=== PATIENT | male | born 1945 | race Caucasian/White ===

== ENCOUNTER 2017-01-28 05:27 | Inpatient (IN) | payer MEDICARE, OTHER ==
[2017-01-21 16:54] LABS: PROTIME (NOT ORD) 12.7 SEC (12.0-14.5)
[2017-01-21 16:55] LABS: ASCORBIC ACID (UR NOT ORDER) NEG (NEG); BILIRUBIN, URINE NEGATIVE (NEG); KETONE, URINE NEGATIVE (NEG); LEUKOCYTE ESTERASE(NOT OR NEG (NEG); WBC (NOT ORDERED) (RFLEX) 2 (0-5)
[2017-01-21 17:15] LABS: % IRON SAT 17 % (20-50); A/G RATIO 1.3 (0.7-1.9); ALBUMIN 4.2 G/DL (3.5-5.0); ALKALINE PHOSPHATASE 82 U/L (45-117); BUN (BLOOD UREA NITROGEN) 19 MG/DL (6-23); CALCIUM, SERUM 9.1 MG/DL (8.5-10.4); CHLORIDE, SERUM 107 MMOL/L (96-112); CO2 (CARBON DIOXIDE) 28 MMOL/L (24-34); CREATININE 1.72 MG/DL (0.70-1.30); GFR AFRICAN AMERICAN 46 ML/MIN (>=60); GFR NON AFRICAN AMERICAN 39 ML/MIN (>=60); GLOBULIN 3.2 G/DL (2.5-4.1); GLUCOSE, SERUM 176 MG/DL (60-99); IRON BINDING CAPACITY 435 MCG/DL (250-450); IRON, SERUM 74 MCG/DL (35-150); POTASSIUM, SERUM 4.1 MMOL/L (3.5-5.3); SGOT(AST) 32 U/L (5-40); SGPT(ALT) 42 U/L (5-65); SODIUM, SERUM 141 MMOL/L (135-148); TOTAL BILIRUBIN 0.4 MG/DL (0-1.2); TOTAL PROTEIN 7.4 G/DL (6.0-8.5)
--- NOTE | ~2017-01-28 | EEG ---
Electroencephalogram [facility] [address] [place]. [address] NAME: LEE ANN ESCOBAR : 47 STATUS : ADM IN [facility]#: [id number] AGE: 71 ADM/REG DATE : 01/28/17 MR#: [id number] REPORT SERV DATE: 02/11/17 DICTATED BY: DATE: REPORT STATUS : Draft TRANSCRIBED BY: MODL DATE: 02/11/17 NEUROLOGY EEG REPORT CLINICAL INDICATIONS: Encephalopathy, comatose state. DESCRIPTION: This EEG was performed using 10/20 electrode placement system. During the EEG study, symmetric background activity with mild generalized slowing was seen, predominant occipital rhythm of roughly 6 to 7 hertz. Photic stimulation was performed with appropriate driving response. No focal abnormalities, seizure activity, or seizure discharge was otherwise noted. Hyperventilation was not performed secondary to the patient's intubated status. During the EEG study, the patient achieved drowsy state. The patient was noted to have episodes of head shaking during the EEG evaluation with no corresponding electrographic seizures. No other clinical seizure like activity was otherwise captured. INTERPRETATION: This EEG study obtained during awake and drowsy state may be considered mildly abnormal secondary to mild generalized slowing, but otherwise no focal abnormalities, seizure activity, or seizure discharge was seen. No electrographic seizure was captured. Clinical correlation is recommended. [facility]/HEBERT Kalen Baron MD / [id number] CC: Luis Antonio Martin M.D. Ian Holcomb M.D.
--- NOTE | ~2017-01-28 | OP ---
Record Of Operation [facility] [address] [place]. [address] NAME: LEE ANN ESCOBAR : 47 STATUS : ADM IN [facility]#: [id number] AGE: 71 ADM/REG DATE : 01/28/17 MR#: [id number] REPORT SERV DATE: 02/01/17 DICTATED BY: STEVIE ZAIDI IV DATE: 01/31/17 REPORT STATUS : Draft TRANSCRIBED BY: MODConstanza DATE: 01/31/17 DATE OF PROCEDURE: 01/31/2017 PREOPERATIVE DIAGNOSIS: Hypoxemic respiratory failure despite BiPAP on 100%. POSTOPERATIVE DIAGNOSIS: Hypoxemic respiratory failure despite BiPAP on 100%. PROCEDURE: Laryngoscopic intubation with ventilator setup and placement of the orogastric tube. INDICATIONS: Hypoxemic respiratory failure despite BiPAP. CONTRAINDICATIONS: None. CONSENT: No consent is obtained, it is a lifesaving procedure, and the patient is a full code. We did review the need to proceed with this procedure with the patient, who agreed. PREOPERATIVE LABS: The patient's platelet count was 170,000, INR was 1.2, PTT is 30.3. METHOD: The patient was brought to the head of the bed and all equipment was made available. He was on BiPAP on 100% with oxygen saturations 89% range. He was given 30 mg of etomidate to provide sedation. Once the patient was sedated, the BiPAP mask was removed and the patient was Ambu bag ventilated. Even with Ambu bag ventilation, saturations were in the mid 80% range. The curved #4 GlideScope blade was used to visualize the patient's vocal cords. They were anterior and fairly deep. It required repositioning of the tube. The vocal cords could be visualized. #8 endotracheal tube was advanced through the cords on first pass with appropriate color change on the CO2 monitor and bilateral breath sounds. The patient was then on PEEP valve of 10 and Ambu bag ventilated. Oxygen saturations dropped into the 70s post intubation. With continued bagging and placement on the vent with high PEEP, oxygen saturations improved to 90% range. There were good bilateral breath sounds. There was no blood loss. Chest x-ray demonstrated good tube position. Once the endotracheal tube was secured, placed an orogastric tube without difficulty with good position on KUB. This will now be used to initiate feeds and for medications. The was updated with the current findings. Most recent blood gas was 7.32, pCO2 of 43, PO2 of 71. The ventilator settings are CMV, tidal volume 500 mL, PEEP of 10, FiO2 100%, and rate of 16. NM/MODL Stevie Zaidi IV, M.D. / [id number] Record Of [address] [address] NAME: LEE ANN ESCOBAR : 47 STATUS : ADM IN [facility]#: [id number] AGE: 71 ADM/REG DATE : 01/28/17 MR#: [id number] REPORT SERV DATE: 02/01/17 DICTATED BY: STEVIE ZAIDI IV DATE: 01/31/17 REPORT STATUS : Draft TRANSCRIBED BY: HEBERT DATE: 01/31/17 CC: Kristofer Gaona M.D.
--- NOTE | ~2017-01-28 | CN ---
Consultation Report [facility] [address] [place]. [address] NAME: LEE ANN ESCOBAR : 47 STATUS : ADM IN PAT#: [id number] AGE: 71 ADM/REG DATE : 01/28/17 MR#: [id number] REPORT SERV DATE: 01/28/17 DICTATED BY: CARLOS COLE DATE: 01/28/17 REPORT STATUS : Draft TRANSCRIBED BY: MODL DATE: 01/28/17 CONSULTATION DATE OF CONSULTATION: Thank you for the opportunity to consult on this patient. HISTORY OF PRESENT ILLNESS: Mr. Escobar is a 71-year-old man with a significant history of coronary artery disease with known coronary artery disease and high risk myocardial perfusion scan. He came in for coronary angiography and was found to have significant critical coronary artery disease and underwent coronary artery bypass graft surgery. He did well but now postoperatively has developed increased oxygen requirements during the weaning off mechanical ventilation. He is on mechanical ventilation on higher oxygen supplementation. He denied any chest pain, though admitted some difficulty breathing. We adjusted his mechanical ventilation that will be discussed below. PAST MEDICAL HISTORY: Significant for coronary artery disease, hypertension, history of unstable angina. SOCIAL HISTORY: Negative for tobacco abuse and alcohol abuse. FAMILY HISTORY: Significant for hypertension and hypercholesterolemia. REVIEW OF SYSTEMS: Review of 10 systems was limited since he is intubated, but was positive for what was noted above. PHYSICAL EXAMINATION: GENERAL: He is awake, on mechanical ventilation. HEENT: Normocephalic and atraumatic. NECK: Supple. No lymphadenopathy. No JVD. CHEST: Symmetric with good expansion bilaterally. LUNGS: He has occasional bilateral crackles, but are mostly clear. CARDIOVASCULAR: He has S1 and S2, which are regular in rate and rhythm. ABDOMEN: Benign. EXTREMITIES: He has no edema. No clubbing. No cyanosis. ASSESSMENT AND PLAN: Respiratory failure. He has hypoxemic respiratory failure with increased oxygen requirements. We tried different modes and on pressure support ventilation, he had very good tidal volumes, very good synchrony, was more comfortable and tolerated a higher PEEP with improvement of his oxygen saturation. We were already able to reduce his FiO2, though he is still above 50%, so we have not weaned him further yet. He has good urine output on no diuretics, but on dobutamine, so he will remain on the dobutamine and we will cut back his maintenance fluids in the meantime. We have started him on bronchodilator protocol and we will watch him closely with you. Once his FiO2 can be Consultation Report [place] [id number] [place] [id number] NAME: LEE ANN ESCOBAR : 47 STATUS : ADM IN PAT#: [id number] AGE: 71 ADM/REG DATE : 01/28/17 MR#: [id number] REPORT SERV DATE: 01/28/17 DICTATED BY: CARLOS COLE DATE: 01/28/17 REPORT STATUS : Draft TRANSCRIBED BY: HEBERT DATE: 01/28/17 safely weaned further, we will proceed with further pressure support weaning. We appreciate the opportunity to participate in his care with you. Please do not hesitate to contact me if I could be of any further assistance. [facility]/HEBERT Carlos Cole M.D. / [id number] CC: Kristofer Gaona M.D.
--- NOTE | ~2017-01-28 | OP ---
Record Of Operation [facility] [address] [place]. [address] NAME: LEE ANN ESCOBAR : 47 STATUS : ADM IN PAT#: [id number] AGE: 71 ADM/REG DATE : 01/28/17 MR#: [id number] REPORT SERV DATE: 02/08/17 DICTATED BY: JESÚS HUMPHREYS DATE: 02/08/17 REPORT STATUS : Draft TRANSCRIBED BY: MODL DATE: 02/08/17 DATE OF PROCEDURE: 02/08/2017 PROCEDURE: Attempted emergent cardioversion. INDICATIONS: Persistent atrial fibrillation, ventilated dependent patient post CABG. PROCEDURE NOTE: Persistent atrial fibrillation observed in a ventilated patient post CABG. Amiodarone oral administration continued. Intravenous heparin continued. Informed consent obtained from . Synchronized biphasic countershocks at 0200 hours joules, and 300 joules administered with only momentary sinus rhythm complex was observed. Persistent atrial fibrillation observed. IMPRESSION: Unsuccessful direct current cardioversion attempts at cardioverting persistent atrial fibrillation. /HEBERT Jesús Humphreys M.D. / [id number] CC: Kristofer Gaona M.D.
--- NOTE | ~2017-01-28 | HP ---
History And Physical [facility] [address] [place]. [address] NAME: LEE ANN ESCOBAR : 47 STATUS : ADM IN LOCATED WITHIN [facility]#: [id number] AGE: 71 ADM/REG DATE : 01/28/17 MR#: [id number] REPORT SERV DATE: 01/28/17 DICTATED BY: LUIS ANTONIO MARTIN DATE: 01/28/17 REPORT STATUS : Draft TRANSCRIBED BY: MODL DATE: 01/28/17 DATE OF ADMISSION: 01/28/2017 PERTINENT HISTORY: The patient is a 71-year-old gentleman, followed closely by Dr. Jorge Humphreys, who underwent cardiac catheterization approximately 10 days ago for persistent chest pain and an abnormal nuclear study. The patient's cardiac catheterization demonstrated severe three-vessel coronary artery disease. He was still on Plavix at that time. He was seen and evaluated at that time and then set up for coronary revascularization after adequate time for the Plavix to leave his system and for his bone marrow to produce normal platelets for adequate coagulation during his intensive period of cardiac surgery. The patient had no previous history of myocardial infarction or stroke and no history of congestive heart failure, although his cardiac index was noted to be only approximately 45% by cardiac catheterization at [facility]. PAST MEDICAL HISTORY: Significant for no previous open cardiac or thoracic surgery, does have a history of hypertension and hyperlipidemia. His medical history is also significant for previous bilateral hernia repair and tonsillectomy. SOCIAL HISTORY: Negative for tobacco or ethanol use. FAMILY HISTORY: Noncontributory. REVIEW OF SYSTEMS: Significant only for those listed in the history of present illness. PHYSICAL EXAMINATION: VITAL SIGNS: Afebrile, blood pressure 140/90, heart rate was 70. CONSTITUTIONAL: Well developed and well nourished. RESPIRATORY: Showed chest to be clear bilaterally. CARDIAC: Showed regular rate and rhythm. No murmur noted. VASCULAR: Showed full pulses throughout. GI: Showed his abdomen is soft and nontender without masses. SKIN: Showed no rash. : Showed normal male external genitalia. PSYCHIATRIC: Normal. NEUROLOGIC: Intact. HEMATOLOGIC: Without thrombocytopenia and without anemia. DATA: His cardiac catheterization was examined by me and demonstrated multiple lesions to the proximal LAD artery, greatest of it being approximately 90%. He has a lesion in the third diagonal artery, which is small, but the lesion was significant. The circumflex is very small and also had about a 50% stenosis in it. The right coronary artery had a very tight proximal stenosis with small distal runoff. The left ventricular function with an EF of approximately 45%. IMPRESSION: At this time is severe three-vessel coronary artery disease and unstable angina. History And Physical [address] [place]. [address] NAME: LEE ANN ESCOBAR : 47 STATUS : ADM IN LOCATED WITHIN [facility]#: [id number] AGE: 71 ADM/REG DATE : 01/28/17 MR#: [id number] REPORT SERV DATE: 01/28/17 DICTATED BY: LUIS ANTONIO MARTIN DATE: 01/28/17 REPORT STATUS : Draft TRANSCRIBED BY: HEBERT DATE: 01/28/17 PLAN: To proceed with coronary revascularization at this time. We will consult Dr. Petr strauss. [facility]/HEBERT Luis Antonio Martin M.D. / [id number] CC: Kristofer Gaona M.D.
--- NOTE | ~2017-01-28 | OP ---
Record Of Operation [facility] [address] [place]. [address] NAME: LEE ANN ESCOBAR : 47 STATUS : ADM IN [facility]#: [id number] AGE: 71 ADM/REG DATE : 01/28/17 MR#: [id number] REPORT SERV DATE: 02/14/17 DICTATED BY: LUIS ANTONIO MARTIN DATE: 02/14/17 REPORT STATUS : Draft TRANSCRIBED BY: HEBERT DATE: 02/14/17 DATE OF PROCEDURE: 02/14/2017 PREOPERATIVE DIAGNOSIS: Status post coronary artery bypass grafting with ventilator dependence. POSTOPERATIVE DIAGNOSES: Status post coronary artery bypass grafting with ventilator dependence. OPERATIVE PROCEDURE: Tracheostomy placement, #8 Shiley trach. OPERATIVE SURGEON: Dr. Luis Antonio Martin. ANESTHESIA: General endotracheal anesthesia, AA. DESCRIPTION OF PROCEDURE: The patient was taken to the operating room and placed in supine position. Anesthesia was obtained via the previously placed endotracheal tube. The anterior neck was then prepped and draped in usual fashion. Incision was made two fingerbreadths above the sternal notch in a transverse fashion, approximately 1 inch in length. The platysma muscle was incised. Retractor was placed. Strap muscles were divided along the midline. The thyroid isthmus was divided with electrocautery. The trachea rings were identified, the tracheal ring #3 was then sutured right and left with a 2-0 silk suture for retraction. The endotracheal tube was freed of all, taken to the face. FiO2 had been dropped to 0.35 throughout the entire procedure. Tracheotomy was then made in a vertical fashion. Under direct visualization, the endotracheal tube was removed and a #8 Shiley trach tube was placed within the trachea. The balloon was inflated to low pressure. Inner cannula was placed, and the patient was being ventilated, excellent oxygenation was noted, CO2 levels were noted to be normal. The field was completely dry. No bleeding noted. A tracheostomy river was placed in usual fashion. The patient tolerated well and moved from the operating room table to the bed and taken to the ICU in stable condition. [facility]/HEBERT Luis Antonio Martin M.D. / [id number] CC: Luis Antonio Martin M.D. Ian Holcomb M.D.
--- NOTE | ~2017-01-28 | CN ---
Consultation Report [facility] [address] [place]. [address] NAME: LEE ANN ESCOBAR : 47 STATUS : ADM IN [facility]#: [id number] AGE: 71 ADM/REG DATE : 01/28/17 MR#: [id number] REPORT SERV DATE: 02/10/17 DICTATED BY: DATE: REPORT STATUS : Draft TRANSCRIBED BY: MODL DATE: 02/10/17 NEUROLOGY CONSULTATION DATE OF CONSULTATION: 02/10/2017 REASON FOR CONSULT: Encephalopathy. HISTORY OF PRESENT ILLNESS: This is a 71-year-old male, who presented to [facility] on 01/28/2017, for coronary artery bypass surgery. The patient after surgery was the briefly doing well, sitting up in the bed, agitated, the patient sustained a brief a hypoxic episode for which the patient was placed on BiPAP, and subsequently reintubated, was noted to have aspiration, and subsequently developed Pseudomonas pneumonia. The patient afterwards was noted to have stabilization of pneumonia and subsequently improvement of respiratory status, with the patient passing spontaneous breathing trial. However, the patient was noted to have persistent encephalopathy preventing extubation. The patient's encephalopathy has not improved. With the patient noted to have significant agitation, required propofol sedation at times for agitation. The patient was otherwise noted to have movement of extremities with exception of some decreased movement in the right upper extremity. With the patient's reports previous immobilization with right upper extremity, secondary to PICC line. The patient's denies any similar events in the past with previous surgeries, but reports the patient in the past does have hypotension, as well as decreased O2 saturation during surgeries. The patient has not had any difficulties weaning off sedation in the past, and prior to the hospitalization was not noted to have any memory difficulties, was not noted to have any loss consciousness episode, with seizure-like episodes, the patient baseline does not have any seizure history or disorder. Prior to the hospitalization, no other recent illness was otherwise reported by the family members. PAST MEDICAL HISTORY: The patient's past medical history is significant for history of hypertension, hyperlipidemia, coronary artery disease, status post recent coronary artery bypass on 01/28/2017. REVIEW OF SYSTEMS: Unable to be obtained, secondary to patient's current mental status at time of evaluation. FAMILY HISTORY: the patient does have a family history of hypertension and hyperlipidemia. SOCIAL HISTORY: Denies tobacco, alcohol, or recreational drug usage. ALLERGIES: THE PATIENT WAS NOTED TO HAVE ALLERGIES TO CODEINE. CURRENT MEDICATIONS: Aspirin, Bumex, Cardizem, Cordarone, Dulera, Florastor, vancomycin, Lopressor, Maxipime, MiraLAX, Neurontin, NovoLog, Pepcid, Plavix, Proventil, Senokot, and Seroquel. The patient is also on propofol drip at the time of evaluation, as well as heparin. Consultation Report [address] [address] NAME: LEE ANN ESCOBAR : 47 STATUS : ADM IN PAT#: [id number] AGE: 71 ADM/REG DATE : 01/28/17 MR#: [id number] REPORT SERV DATE: 02/10/17 DICTATED BY: DATE: REPORT STATUS : Draft TRANSCRIBED BY: HEBERT DATE: 02/10/17 PHYSICAL EXAMINATION: VITAL SIGNS: At the time of evaluation, the patient was noted to have vital signs with T- max of 99.7, heart rate of 72 to 103, respirations of 14 to 30, and blood pressure of 115 to 143/57 to 83. GENERAL: The patient is well-developed, well-nourished, in no acute distress. CARDIOVASCULAR: Regular rate and rhythm. No carotid bruits were otherwise auscultated. PULMONARY: Clear to auscultation bilaterally. NEUROLOGIC: Generally, the patient is alert, however, he is not following commands and not answering questions. The patient was noted to have nonpurposeful movement, but was noted to have agitation, head shaking in the bed with the patient noted to have persistent movement of left upper extremity against gravity, as well as some agitated movement of bilateral lower extremity against gravity, as well as some movement of right upper extremity. The patient otherwise demonstrated no verbal response and does not follow commands. Cranial nerves 2 through 12. Pupils equal, round, and reactive to light. Horizontal eye movement was seen on oculocephalic maneuver, but no tracking of the face was noted. The patient does demonstrate a corneal reflex. No clear blink to threat response was noted. The gag reflex was noted. The patient does appear to have some response to noxious stimulation. With the patient noted to have some trace grimace to noxious stimulation in bilateral upper and lower extremities. The patient does demonstrated 3+ reflexes throughout. Gait and cerebellar examination was unable to be performed, secondary to the patient's agitation and encephalopathy. LABORATORY STUDIES: Demonstrated white blood cell count of 10.9, hemoglobin of 9.1, hematocrit of 28.9, and platelet count of 459. Chemistry panel; sodium of 146, potassium 3.0, chloride 110, bicarb 28, BUN of 56, creatinine 1.31, glucose of 129, calcium of 8.5, magnesium of 2.5. With the patient noted to have serum ammonia level of 53 on 02/09/2017. Hepatitis panel was otherwise negative. The patient was noted to have ABG; pH of 7.47, pCO2 of 38, PO2 of 68, bicarb 26.4, and O2 saturation of 92.6. CT scan of the brain demonstrated no acute process. IMPRESSION: Encephalopathy, with the patient noted to be agitated off sedation. No purposeful movement was demonstrated. Concern for possible multifactorial etiology for the patient's encephalopathy due to sedation, brief hypoxic episode, as well as hyperammonemia. We will check MRI of the brain for any SOFTWARE INTEGRATOR structure abnormalities. We will also check EEG, as well as laboratory study. For patient's mild hyperammonemia will also provide the patient with lactulose. RECOMMENDATION: 1. EEG. 2. Lactulose 30 mL p.o. t.i.d. 3. MRI of the brain without contrast. 4. Ammonia, vitamin B12, folate with morning labs. 5. Thiamine 100 mg IV daily. Consultation Report [address] [place]. [address] NAME: LEE ANN ESCOBAR : 47 STATUS : ADM IN [facility]#: [id number] AGE: 71 ADM/REG DATE : 01/28/17 MR#: [id number] REPORT SERV DATE: 02/10/17 DICTATED BY: DATE: REPORT STATUS : Draft TRANSCRIBED BY: MODL DATE: 02/10/17 [facility]/HEBERT Kalen Baron MD / [id number] CC: Kristofer Gaona M.D.
--- NOTE | ~2017-01-28 | CN ---
Consultation Report [facility] [address] [place]. [address] NAME: LEE ANN ESCOBAR : 47 STATUS : ADM IN [facility]#: [id number] AGE: 71 ADM/REG DATE : 01/28/17 MR#: [id number] REPORT SERV DATE: 01/29/17 DICTATED BY: EMILY JACKSON DATE: 01/29/17 REPORT STATUS : Draft TRANSCRIBED BY: MODL DATE: 01/29/17 NEPHROLOGY CONSULTATION DATE OF CONSULTATION: 01/29/2017 INDICATION FOR CONSULTATION: Chronic kidney disease. HISTORY OF PRESENT ILLNESS: Mr. Escobar is a 71-year-old male, who required four-vessel CABG on 01/28/2017 for multivessel coronary artery disease. He appears to have a baseline creatinine of 1.5 to 2.2 according to old records. 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 He has longstanding hypertension and presently, he is requiring diuretics with Bumex and Diuril. He is having significant postop chest discomfort, which is being addressed with adjustment in medications. He has also been seen for postop hypoxemia and is being monitored by Critical Care. His chest x-ray evidences perihilar infiltrates with left pleural effusion, prompting the need for diuretics. He has been responsive to diuretics, but still is in positive fluid balance. Currently, he is on dobutamine and epinephrine. He is febrile to 100.9 degrees, and his labs reflect a white cell count of 16,000. PAST MEDICAL HISTORY: 1. CKD stage 3 to 4. Baseline creatinine ranging 1.5 to 2.2. Current creatinine increasing from 1.72 to 1.98. 2. Multivessel CAD with CABG x4 vessels on 01/28/2017. 3. Obstructive sleep apnea. 4. Remote CVAs x2. 5. Hyperlipidemia. 6. Hypertension. 7. Remote bilateral herniorrhaphy. 8. Remote tonsillectomy. SOCIAL HISTORY: No prior tobacco use. No alcohol use. No illicit drug use. FAMILY HISTORY: Positive for hypertension. No end-stage renal disease. REVIEW OF SYSTEMS: HEENT: No change in visual acuity. No epistaxis. No otic infection. No pharyngitis. PULMONARY: He has some difficulty with breathing, intermittent cough. CARDIAC: Recent CABG, having pain from chest tube. No edema. GI: No nausea, vomiting, or melena. : Indwelling Childers. MUSCULOSKELETAL: Denies arthralgias or joint effusions. INTEGUMENT: Denies rash or itching. NEUROLOGIC: Prior CVAs. Denies lateralizing weakness. Consultation Report [facility] [id number] [place]. [address] NAME: LEE ANN ESCOBAR : 47 STATUS : ADM IN [facility]#: [id number] AGE: 71 ADM/REG DATE : 01/28/17 MR#: [id number] REPORT SERV DATE: 01/29/17 DICTATED BY: EMILY JACKSON DATE: 01/29/17 REPORT STATUS : Draft TRANSCRIBED BY: HEBERT DATE: 01/29/17 PHYSICAL EXAMINATION: GENERAL: Elderly male, in some discomfort. VITAL SIGNS: Blood pressure 112/58, temp 100.2, respiratory rate 22. HEENT: Eyes, no scleral icterus. Pupils equal and reactive to light. Extraocular movement intact. Nares patent, no discharge. Throat, no injection. Mucous membranes moist. NECK: No thyromegaly, masses, or bruits. CHEST/LUNGS: Left chest tube, midline sternotomy bandaged. Lungs with bilateral crackles and few scattered rhonchi. ABDOMEN: Supple. Normoactive bowel sounds. Nontender. No hepatosplenomegaly. Unable to appreciate bruits. CARDIAC: Regular rate and rhythm. Unable to appreciate murmur, gallop, or rub. : Indwelling Childers. RECTAL: Not performed. EXTREMITIES: No edema. No calf tenderness. DERMIS: No skin rash. No skin lesions. MUSCULOSKELETAL: No deformity. NEUROLOGIC: Cranial nerves intact. No lateralizing weakness. IMPRESSION: 1. Chronic kidney disease stage 3 to 4. Baseline creatinine 1.5 to 2.2. Currently, creatinine has risen from 1.7 to 1.98 with diuresis. 2. Postoperative hypoxic respiratory failure, concur with diuresis. 3. Status post CABG x4 on 01/28/2017. 4. Obstructive sleep apnea. 5. History of cerebrovascular accident x2. 6. Hyperlipidemia. 7. Hypertension. 8. Remote tonsillectomy. 9. Remote bilateral herniorrhaphy. PLAN: 1. Continue diuretics. 2. Avoid nonsteroidal anti-inflammatory drugs. 3. We will obtain renal ultrasound. 4. We will follow with labs. AMBER/HEBERT Emily Jackson M.D. / [id number] Consultation Report [address] [place] [address] NAME: LEE ANN ESCOBAR : 47 STATUS : ADM IN PAT#: [id number] AGE: 71 ADM/REG DATE : 01/28/17 MR#: [id number] REPORT SERV DATE: 01/29/17 DICTATED BY: EMILY JACKSON DATE: 01/29/17 REPORT STATUS : Draft TRANSCRIBED BY: HEBERT DATE: 01/29/17 CC: Kristofer Gaona M.D.
--- NOTE | ~2017-01-28 | CN ---
Consultation Report [facility] [address] [place]. [address] NAME: LEE ANN ESCOBAR : 47 STATUS : ADM IN [facility]#: [id number] AGE: 71 ADM/REG DATE : 01/28/17 MR#: [id number] REPORT SERV DATE: 02/06/17 DICTATED BY: SALAS SOLANO DATE: 02/06/17 REPORT STATUS : Draft TRANSCRIBED BY: MODConstanza DATE: 02/06/17 INFECTIOUS DISEASE CONSULT DATE OF CONSULTATION: REASON FOR CONSULT: Fever. HISTORY OF PRESENT ILLNESS: A 71-year-old white male with history of coronary artery disease, hypertension, sleep apnea, strokes, chronic kidney disease, bilateral hip replacement, prior spine surgery with hardware placement who was electively admitted on 01/28/2017 for coronary artery bypass surgery. He has had a loose left prosthetic hip and knew that he needed that operated, but cardiac clearance was requested. Cardiac catheterization at the end of December showed diffuse coronary artery disease with significant occlusion of the LAD, RCA, and one of the marginal branches. Ejection fraction of 45%. Also about two weeks prior to the surgery, he had a "sinus infection," treated with Augmentin for more than a week and steroids. He had a clinical response, according to his , and she thinks he finished the antibiotics just a few days prior to the surgery. He had coronary artery bypass on 01/28/2017 with four bypasses including CRUM to LAD. Saphenous vein was harvested from the left leg. Screening, no swab before surgery was positive for MRSA and MSSA. He received Ancef and vancomycin perioperatively. Postop day #1, he could not be weaned off the ventilator. He was hypoxic. He eventually was weaned off maybe a day later. He was followed by Nephrology because of some mild increase of creatinine, but it sounds like he has chronic kidney disease. A sputum culture on 01/29/2017 grew just normal yeimi. Chest x-ray showed some left base consolidation and right perihilar density. After extubation, he required Vapotherm and then BiPAP. He was thought to have pulmonary edema. The dobutamine was stopped on 01/31/2017. Unfortunately, he had increased oxygen requirements even further and had to be intubated 01/31/2017. His sputum culture at that time grew with amikacin HELENA of 16, but sensitive to cefepime, aztreonam, and Zosyn. Blood cultures at that time were negative. He was started on vancomycin and Zosyn. On 02/01/2017, Cordis was removed and the tip culture grew 25 colonies of MRSE, so the vancomycin was continued. On 02/01/2017, chest x-ray showed some increased hilar infiltrates. PICC line was placed. Consultation Report [address] [place]. [address] NAME: LEE ANN ESCOBAR : 47 STATUS : ADM IN PAT#: [id number] AGE: 71 ADM/REG DATE : 01/28/17 MR#: [id number] REPORT SERV DATE: 02/06/17 DICTATED BY: SALAS SOLANO DATE: 02/06/17 REPORT STATUS : Draft TRANSCRIBED BY: HEBERT DATE: 02/06/17 On 02/03/2017, the description of thick respiratory secretion and some increased oxygen requirement, so another sputum culture was sent and grew Pseudomonas again, but an antibiogram was not done from the second one. On 02/04/2017, he started having a fever, which he had previously, but then it improved and he has pretty much had a fever since 02/04/2017, but the temp has been checked by bladder probe. An A line was removed yesterday and that line tip culture is negative so far. He has been diuresed thinking he has pulmonary edema and that helped decrease oxygen requirements in the last couple of days by 60% FiO2. Lab work shows improvement in procalcitonin down to 0.3 and creatinine to 1.7. WBC today is 8, hemoglobin 9, segments 86, bands 2. I discussed with the patient's prior to the admission. He did not have any acute respiratory symptoms, has not been hospitalized in the last two to three years, has not been in the [facility]pc. He has no history of frequent bronchitis or lung disease. I discussed with the patient's nurse. He does have fever even when checked axillary. The amount of pulmonary secretions has decreased in the last day or two. No vomiting. He does have stools. He is on tube feeding and has no residuals. He has responded to diuretics with good urine output. I was told that the chest surgical site looked okay at the last dressing change a few days ago. PAST MEDICAL HISTORY: Hypertension, coronary artery disease, sleep apnea, stroke, chronic kidney disease, bilateral hip replacement, spine surgery, hardware placement, hemorrhoid surgery, and bilateral hernia surgery. No history of hip infections. 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 Quit smoking 25 years ago. He does not abuse alcohol. They have one indoor dog and have some outdoor cats and chickens. Apparently, one of the chicken pecked on his right forearm recently. ALLERGIES: CODEINE CAUSED ITCHING. MEDICATIONS ON ADMISSION: Amiodarone, amlodipine with benazepril, aspirin, bisoprolol with hydrochlorothiazide, Benadryl as needed, Cymbalta, gabapentin, Singulair, Protonix, and Flomax. FAMILY HISTORY: Hypertension and heart disease. PHYSICAL EXAMINATION: Exam done in presence of his and his nurse. HEENT: Sclerae seem white. Cannot examine the oral mucosa. Nose without any big amount of secretions, just a little bit of dry secretions. Left ear, the tympanic membrane seems to be bulging a little bit. The right ear, cannot see well, there is some wax. He has a PICC line without erythema. He has ecchymosis at the previous arterial line site. Consultation Report [address] [address] NAME: LEE ANN ESCOBAR : 47 STATUS : ADM IN [facility]#: [id number] AGE: 71 ADM/REG DATE : 01/28/17 MR#: [id number] REPORT SERV DATE: 02/06/17 DICTATED BY: SALAS SOLANO DATE: 02/06/17 REPORT STATUS : Draft TRANSCRIBED BY: HEBERT DATE: 02/06/17 LUNGS: Decreased sounds, but no wheezes, rhonchi, or rales. HEART: Irregular rhythm. No murmurs. Surgical site has a dressing. This has no spots on it. ABDOMEN: Distended, compressible, quiet. He has a Childers catheter with yellow clear urine. SKIN: Without rash. He has some red spots over the pubic area where he was shaved. MUSCULOSKELETAL: Left leg vein harvest site without drainage or inflammation. Hands and feet without open wounds. ASSESSMENT AND PLAN: 1. Fever. 2. Respiratory failure with possible Pseudomonas pneumonia. 3. Postoperative day nine, coronary artery bypass graft x4 vessels including left internal mammary artery to left anterior descending artery. Saphenous vein was harvested from the left leg. 4. Cordis tip culture on 02/01/2017 grew MRSE, but blood cultures on 01/31/2017 were negative. The line is out anyway. 5. History of coronary artery disease, hypertension, sleep apnea, stroke, and bilateral hip replacement. No history of prosthetic hip infection. 6. Recently treated for "sinusitis" with Augmentin and steroids. The course of fever is unclear. He is on appropriate antibiotics, both for the Pseudomonas in the sputum and the MRSE. The amount of sputum production has decreased over the last couple of days, the white blood cell count and procalcitonin are better. He has some abdominal distention, but seems to tolerate the tube feeding. I discussed with the and the nurse. I am going to change the Zosyn to cefepime. Although again, according to the culture, the Zosyn would be appropriate for the Pseudomonas. We will follow up chest x-ray, procalcitonin, liver enzymes, and we will check a KUB x-ray. I discussed with the , I discussed with the patient's doctor, Dr. Zaidi, as well as the nurse and respiratory therapist. I reviewed prior records and films. Time spent more than 2 hours. PC/HEBERT Salas Solano M.D. / [id number] CC: Luis Antonio Martin M.D. Consultation Report [address] [address] NAME: LEE ANN ESCOBAR : 47 STATUS : ADM IN [facility]#: [id number] AGE: 71 ADM/REG DATE : 01/28/17 MR#: [id number] REPORT SERV DATE: 02/06/17 DICTATED BY: SALAS SOLANO DATE: 02/06/17 REPORT STATUS : Draft TRANSCRIBED BY: MODL DATE: 02/06/17 Ian Holcomb M.D.
--- NOTE | ~2017-01-28 | DS ---
Discharge Summary [facility] [address] [place]. [address] NAME: LEE ANN ESCOBAR : 47 STATUS : ADM IN PAT#: [id number] AGE: 71 ADM/REG DATE : 01/28/17 MR#: [id number] REPORT SERV DATE: 02/16/17 DICTATED BY: LUIS ANTONIO MARTIN DATE: 02/15/17 REPORT STATUS : Draft TRANSCRIBED BY: MODL DATE: 02/15/17 ADMISSION DATE: 01/28/2017 DISCHARGE DATE: DISCHARGE PHYSICIAN: Luis Antonio Martin M.D. The patient is going to be going to a facility in [place], [place]. Date of discharge and transfer to outlying facility is on 02/16/2017. HOSPITAL COURSE: The patient was admitted to the hospital on 01/28/2017 electively for coronary bypass grafting procedure. The patient had previously been evaluated by Dr. Humphreys as an outpatient and referred to us for evaluation and then for surgical treatment. The patient was admitted to the hospital on 01/28/2017, taken to the operating room, at which time, he underwent coronary artery bypass grafting x4 with endoscopic vein harvest. At that time, he had the left internal mammary artery graft to the LAD artery, a vein graft to the diagonal artery, a vein graft to the obtuse marginal artery, and a vein graft to the right coronary artery. He did require AV sequential pacing to come off bypass and he also required a dobutamine inotropic therapy at 5 mcg per kg per minute and was easily weaned from cardiopulmonary bypass. He was taken to the surgical CVICU that night. He was very stable. He was slowly weaned from the ventilator to a BiPAP mask. The next day, on postop day #2, he did have some renal dysfunction. His creatinine elevated to 1.98. Renal consultation was obtained. He was weaned from his pacemaker and was in a normal sinus rhythm with adequate rhythm. His chest tube output was minimal and his chest tubes were discontinued on postop day #2. The Renal Service kindly saw him and followed him along closely feeling that if we would allow his blood pressure to increase and also some hydration therapy that would improve his renal function. He then on postop day #3, which is 01/30/2017, the patient did have a slowly increasing O2 requirement to maintain oxygenation. He eventually was increased to 100% oxygen via BiPAP. His dobutamine, however, was able be decreased 3. Pulmonary Critical Care was consulted due to his hypoxemia. They did see him and started him on a Bumex infusion to increase diuresis. His pacing wires were discontinued as he remained hemodynamically stable. The Renal Service placed him on albumin and Bumex. He did have been in atrial fibrillation in the evening hours at a rapid rate and was treated with appropriate therapy by Dr. Humphreys, his plant controls specialist. On postop #4, the patient remained on BiPAP. The Pulmonary Critical Care Medicine was continue his diuretic therapy as was renal therapy. He did require re-intubation at 2:00 p.m. in the afternoon for worsening hypoxemia. He had his sputum cultured and he was started on broad-spectrum coverage with vancomycin and Zosyn for potential pneumonia. He did have some mild hypotension during the intubation process and did require some Levophed support for his blood pressure. On postop day #5, the patient remained intubated. He was on 75% oxygen, PEEP of 10. He has had some mild hypotension after intubation, but by this day, Levophed had been weaned off. The patient is in normal sinus rhythm. His dobutamine was off and tube feedings were started. He tolerated his tube feedings. On postop day #5, the patient remained intubated and sedated. His FiO2 had decreased down to 45% or 0.45. His creatinine which had peaked at 2.3 on 02/01/2017 was now down to 2.0. His white blood cell count also had improved, it was diminished down to 7.3, down from 16. He was sedated with Diprivan and Discharge Summary [address] [address] NAME: LEE ANN ESCOBAR : 47 STATUS : ADM IN [facility]#: [id number] AGE: 71 ADM/REG DATE : 01/28/17 MR#: [id number] REPORT SERV DATE: 02/16/17 DICTATED BY: LUIS ANTONIO MARTIN DATE: 02/15/17 REPORT STATUS : Draft TRANSCRIBED BY: MODConstanza DATE: 02/15/17 fentanyl, but he was making slow progress. On postop day #6, he was still on the ventilator, still being mildly sedated because he would get very restless. His chest x-ray continued to show some edema, vascular congestion. His blood cultures were all negative. On postop day #7, he continued to be on the ventilator. He was in and out of atrial fibrillation, being treated by Dr. Humphreys, blood cultures still negative by two days and Renal Service continued to medically induce diuresis. On postoperative day #8, the patient was able to follow commands on the ventilator when the sedation was diminished. He remained in atrial fibrillation, but occasionally would convert to normal sinus rhythm. He did have a fever on that day, and therefore, Infectious Disease was consulted. On postop day #9, he was still ventilated and sedated, he was back in AFib with an increased rate. His antibiotics have been continued due to some Pseudomonas that are growing in his sputum. Renal was still following closely, but his creatinine did come down to 1.75. The Zosyn had been changed to cefepime. On postop day #10, the AFib was controlled on Cardizem drip, still ventilated and sedated. His wounds were healing well. His chest tube has obviously been removed for several days as was his pacing wires, and he had no real obvious surgical issues. Renal, Infectious Disease, and Pulmonary Critical Care were following and performing most of the care. On postop day #11, the patient had DC cardioversion for the AFib, but the AFib persists. He had a head CT, which was negative for any mass effect or any signs to justify an abnormal neuro exam. His serum ammonia level had elevated to 32. On postop day #12, he remained intubated, he is in atrial fibrillation, creatinine is down to 1.4. His serum ammonia level was 53%. 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 He also still had some sedation on board. On postoperative day #14, the patient remained hemodynamically stable. I had long discussions with the patient's . She had family and some of other support in [place], [place], and she began questioning the possibility of transferring him there for continued care as she was very familiar with the facility there in [place]. On postop day #15, the patient still had occasional temperature spikes up to 102. Bowel sounds are all within normal limits. Neurology did sign off, they felt that there is no focal lesion involved, this is truly just a multifactorial encephalopathy that would resolve if supported. The patient's family continued to express concerns about wanting to be transferred to [facility]. On postoperative day #17, the patient was taken to the operating room by myself and a tracheostomy was performed to allow us to remove the endotracheal tube from his mouth and #8 Shiley tracheostomy tube was placed in the neck without difficulty without any bleeding. The patient tolerated the procedure quite well. He had been receiving tube feedings by way of an NG tube, but the family requested to have the PEG tube placed down in [place] rather than being placed here in [place]. On postop day #18, on 02/15/2017, the last few arrangements were being made for transfer to [facility] on postop day #19, on 02/16/2017. The discharge diagnoses were coronary artery disease; encephalopathy; renal insufficiency; atrial fibrillation; and fever, unknown origin. The operative procedure performed was cardiovascular grafting x4, also tracheostomy. The consultants during his hospitalization were Dr. Humphreys, Infectious Disease, Renal Service, and pulmonary Critical Care Medicine. Discharge Summary [address] [address] NAME: LEE ANN ESCOBAR : 47 STATUS : ADM IN [facility]#: [id number] AGE: 71 ADM/REG DATE : 01/28/17 MR#: [id number] REPORT SERV DATE: 02/16/17 DICTATED BY: LUIS ANTONIO MARTIN DATE: 02/15/17 REPORT STATUS : Draft TRANSCRIBED BY: HEBERT DATE: 02/15/17 The discharge was on 02/16/2017 to be transferred to LTAC Facility in [place], [place], for continued care as he was still on the ventilator. Hemodynamically, he was very stable. Wounds are all healing well. No acute surgical issues whatsoever. The patient would be treated and followed there for the ventilator dependence with hopeful eventual weaning should be made easier with the tracheostomy tube in place. Once again, this is to accompany the patient to his transfer on 02/16/2017 to [place], [place]. DICTATED BY: Kristofer Gaona/HEBERT Luis Antonio Martin M.D. / [id number] CC: Kristofer Gaona M.D.
--- NOTE | ~2017-01-28 | OP ---
Record Of Operation [facility] [address] [place]. [address] NAME: LEE ANN ESCOBAR : 47 STATUS : ADM IN PAT#: [id number] AGE: 71 ADM/REG DATE : 01/28/17 MR#: [id number] REPORT SERV DATE: 01/28/17 DICTATED BY: LUIS ANTONIO MARTIN DATE: 01/28/17 REPORT STATUS : Draft TRANSCRIBED BY: MODL DATE: 01/28/17 DATE OF PROCEDURE: 01/28/2017 PREOPERATIVE DIAGNOSIS: Coronary artery disease and unstable angina. POSTOPERATIVE DIAGNOSES: Coronary artery disease and unstable angina. OPERATIVE PROCEDURE: Coronary artery bypass grafting x4, endoscopic vein harvest utilizing the left internal mammary artery to the LAD artery, reverse saphenous vein graft from the aorta to the diagonal artery, from the aorta to the obtuse marginal artery, and from the aorta to the right coronary artery. Also transesophageal echocardiography. OPERATIVE SURGEON: Dr. Luis Antonio Martin. ANESTHESIA: General endotracheal anesthesia, AA. Chest tubes placed were two. Pacing wires two on the right ventricle and two on the right atrium. PERTINENT HISTORY: The patient is a 71-year-old gentleman, referred by Dr. Humphreys with severe three-vessel coronary artery disease and unstable angina. The coronary artery disease had been detected during preoperative evaluation for a total hip replacement. OPERATIVE FINDINGS: The patient had very diffuse coronary artery disease. A transesophageal echocardiogram demonstrated no significant valvular heart disease. OPERATIVE PROCEDURE: The patient was taken to the operating room and placed in the supine position. Anesthesia was obtained. The patient was prepped and draped in the usual sterile fashion. Transesophageal echocardiogram was performed demonstrating no significant valvular heart disease. Greater saphenous vein was harvested from the lower extremities with invasive technique and those wounds were closed in a two-layer fashion. A midline sternotomy incision was made. Sternum was divided. Left internal mammary artery was dissected and found to have good flow. Heparin was then infused. The patient was started on cardiopulmonary bypass. Cross-clamp was applied. Cardioplegia was infused in antegrade and retrograde fashion over a period of 15 minutes. The right coronary artery was bypassed with reverse saphenous vein graft in an end-to-side fashion. The obtuse marginal artery was bypassed with reverse saphenous vein graft in end-to-side fashion. The diagonal artery was bypassed with reverse saphenous vein graft in end-to-side fashion. The left internal mammary artery was used to bypass the LAD artery in an end-to-side fashion. Crossclamp was sewn in place on the three proximal anastomoses on the ascending aorta. Cross-clamp was removed again. Good hemostasis was noted. Two pacing wires were placed on the right ventricle and two on the right atrium and two chest tubes were placed. The patient underwent AV sequential pacing with mild inotropic support. He was weaned from cardiopulmonary bypass. Protamine sulfate was infused. Hemostasis was adequate. Sternum was closed with four sternal cables. Soft tissue was closed in the usual manner. Sterile dressings were applied. The patient tolerated the procedure well and taken back to the ICU Record Of [address] [address] NAME: LEE ANN ESCOBAR : [birth year] STATUS : ADM IN [facility]#: [id number] AGE: 71 ADM/REG DATE : 01/28/17 MR#: [id number] REPORT SERV DATE: 01/28/17 DICTATED BY: LUIS ANTONIO MARTIN DATE: 01/28/17 REPORT STATUS : Draft TRANSCRIBED BY: HEBERT DATE: 01/28/17 in stable condition. MONALISA/HEBERT Luis Antonio Martin M.D. / [id number] CC: Kristofer Gaona M.D.
[~2017-01-28 05:27] MED LIST: AMB10 PO; AMB5 PO; ASAB PO; BEN25 PO; CORDARONE PO; CYMBALTA60 PO; DCN100 PO; DYAZIDE1 CAP PO; FLOMAX4 PO; FOLBEE PLU1 OR; KLONO1 PO; LOTREL1 CA4 PO; LOVAZA1 GM PO; MIDRIN PO; NEUR300 PO; NEXIUM40 PO; NITROSTAT0.4 MG SL; PLAVIX PO; PROAIR HFA INH; PROTONIX PO; SINGULAIR1 PO; TOPAMAX100 PO; TOPAMAX50 MG PO; TOPXL25 PO; TRICOR145 PO; VITAMIN C100 M1 PO; Z100 PO; ZIAC10 PO
[2017-01-28 12:38] LABS: BE (BASE EXCESS) 0.1 MEQ/L (0 +/- 2.5); INSTRUMENT SERIAL # 11843; PCO2 (CO2 TENSION) 42 MMHG (35-45); PO2 (O2 TENSION) 171 MMHG (79-93); pH 7.39 (7.37-7.43)
[2017-01-28 12:39] LABS: CARBOXYHEMOGLOBIN 0.3 % (0-3); HEMOBLOGIN CONTENT 12.3 G/DL (14-18); METHEMOGLOBIN 0.7 % (0-3); MODE SIMV; O2 CONTENT 17.2 VOL% (18-24); OPERATOR ID 32214; SAMPLE Arterial; TIDAL VOLUME 700 ML
[2017-01-28 13:36] LABS: BASOPHILS 0.2 %; BASOPHILS ABSOLUTE 0.03 10/3/uL (0.0-0.16); EOSINOPHILS 2.1 %; EOSINOPHILS ABSOLUTE 0.28 10/3/uL (0.0-0.53); IMMATURE GRANULOCYTES 1.3 %; IMMATURE GRANULOCYTES ABSOLUTE 0.18 10/3/uL (0.0-0.11); LYMPHOCYTES 15.9 %; LYMPHOCYTES ABSOLUTE 2.14 10/3/uL (0.67-4.30); MEAN CORPUS HGB CONC 34.1 g/dL (32.0-36.0); MEAN CORPUSCULAR HEMOGLOB 32.5 pg (26.0-34.0); MEAN CORPUSCULAR VOLUME 95.2 fL (80-100); MEAN PLATELET VOLUME 9.9 fL (9.2-13.0); MONOCYTES 4.2 %; MONOCYTES ABSOLUTE 0.56 10/3/uL (0.21-1.20); NEUTROPHILS 76.3 %; NEUTROPHILS ABSOLUTE 10.25 10/3/uL (2.02-8.40); PLATELET COUNT 191 10/3/uL (150-400); RBC DISTRIBUTION WIDTH 14.7 % (12.0-16.0)
[2017-01-28 13:37] LABS: HEMOGLOBIN 11.6 g/dL (13.6-17.8); MANUAL DIFF NO %; RED CELL COUNT 3.57 10/6/uL (4.7-6.1); WHITE BLOOD CELLS 13.4 10/3/uL (4.5-10.5)
[2017-01-28 13:45] LABS: INTERNATIONAL NORMAL RATI 1.3 UNITS (-); PARTIAL THROMBO TIME 30.3 SEC (22.5-37.2)
[2017-01-28 13:46] LABS: PROTIME (NOT ORD) 16.5 SEC (12.0-14.5)
[2017-01-28 13:48] LABS: CHLORIDE, SERUM 111 MMOL/L (96-112); CO2 (CARBON DIOXIDE) 28 MMOL/L (24-34); CREATININE 1.82 MG/DL (0.70-1.30); GFR AFRICAN AMERICAN 43 ML/MIN (>=60); GFR NON AFRICAN AMERICAN 37 ML/MIN (>=60); POTASSIUM, SERUM 4.4 MMOL/L (3.5-5.3); SODIUM, SERUM 145 MMOL/L (135-148)
[2017-01-28 13:49] LABS: BUN (BLOOD UREA NITROGEN) 24 MG/DL (6-23); CALCIUM, SERUM 7.9 MG/DL (8.5-10.4); GLUCOSE, SERUM 66 MG/DL (60-99)
[2017-01-28 16:56] LABS: BE (BASE EXCESS) -1.2 MEQ/L (0 +/- 2.5); CARBOXYHEMOGLOBIN 0.4 % (0-3); HCO3 (ACTUAL BICARBONATE) 25.2 MEQ/L (23-27); HEMOBLOGIN CONTENT 12.5 G/DL (14-18); INSTRUMENT SERIAL # 11843; METHEMOGLOBIN 0.5 % (0-3); MODE SIMV; O2 CONTENT 15.7 VOL% (18-24); OPERATOR ID 32214; PCO2 (CO2 TENSION) 49 MMHG (35-45); PO2 (O2 TENSION) 65 MMHG (79-93); PRESSURE SUPPORT 5 cm.H2O; SAMPLE Arterial; TIDAL VOLUME 700 ML; pH 7.33 (7.37-7.43)
[2017-01-28 19:09] LABS: HEMATOCRIT 34.4 % (40.0-51.0); HEMOGLOBIN 11.5 g/dL (13.6-17.8)
[2017-01-29 04:34] LABS: BASOPHILS 0.1 %; BASOPHILS ABSOLUTE 0.02 10/3/uL (0.0-0.16); EOSINOPHILS 0 %; HEMATOCRIT 35.3 % (40.0-51.0); HEMOGLOBIN 11.7 g/dL (13.6-17.8); IMMATURE GRANULOCYTES 0.7 %; IMMATURE GRANULOCYTES ABSOLUTE 0.12 10/3/uL (0.0-0.11); LYMPHOCYTES 4.9 %; LYMPHOCYTES ABSOLUTE 0.79 10/3/uL (0.67-4.30); MEAN CORPUS HGB CONC 33.1 g/dL (32.0-36.0); MEAN CORPUSCULAR HEMOGLOB 32.1 pg (26.0-34.0); MEAN CORPUSCULAR VOLUME 96.7 fL (80-100); MONOCYTES 6.6 %; MONOCYTES ABSOLUTE 1.06 10/3/uL (0.21-1.20); NEUTROPHILS 87.7 %; NEUTROPHILS ABSOLUTE 14.05 10/3/uL (2.02-8.40); PLATELET COUNT 224 10/3/uL (150-400); RBC DISTRIBUTION WIDTH 14.9 % (12.0-16.0); RED CELL COUNT 3.65 10/6/uL (4.7-6.1)
[2017-01-29 04:35] LABS: INTERNATIONAL NORMAL RATI 1.2 UNITS (-); MANUAL DIFF NO %; PROTIME (NOT ORD) 15.1 SEC (12.0-14.5)
[2017-01-29 04:40] LABS: BUN (BLOOD UREA NITROGEN) 25 MG/DL (6-23); CALCIUM, SERUM 7.7 MG/DL (8.5-10.4); CHLORIDE, SERUM 112 MMOL/L (96-112); CO2 (CARBON DIOXIDE) 25 MMOL/L (24-34); CREATININE 1.98 MG/DL (0.70-1.30); GFR AFRICAN AMERICAN 39 ML/MIN (>=60); GFR NON AFRICAN AMERICAN 33 ML/MIN (>=60); GLUCOSE, SERUM 104 MG/DL (60-99); POTASSIUM, SERUM 3.9 MMOL/L (3.5-5.3); SODIUM, SERUM 145 MMOL/L (135-148)
[2017-01-29 08:48] LABS: BE (BASE EXCESS) -2.8 MEQ/L (0 +/- 2.5); CARBOXYHEMOGLOBIN 0.3 % (0-3); DEVICE HFNC; HCO3 (ACTUAL BICARBONATE) 21.3 MEQ/L (23-27); HEMOBLOGIN CONTENT 12.1 G/DL (14-18); INSTRUMENT SERIAL # 11843; METHEMOGLOBIN 0.5 % (0-3); O2 CONTENT 15.5 VOL% (18-24); OPERATOR ID 18642; PCO2 (CO2 TENSION) 35 MMHG (35-45); PO2 (O2 TENSION) 63 MMHG (79-93); SAMPLE Arterial; pH 7.41 (7.37-7.43)
[2017-01-29 17:16] LABS: HEMATOCRIT 33.2 % (40.0-51.0); HEMOGLOBIN 10.9 g/dL (13.6-17.8)
[2017-01-29 17:23] LABS: POTASSIUM, SERUM 4.1 MMOL/L (3.5-5.3)
[2017-01-30 03:42] LABS: BASOPHILS 0.1 %; BASOPHILS ABSOLUTE 0.01 10/3/uL (0.0-0.16); EOSINOPHILS 0.1 %; EOSINOPHILS ABSOLUTE 0.01 10/3/uL (0.0-0.53); HEMATOCRIT 30.2 % (40.0-51.0); HEMOGLOBIN 10.2 g/dL (13.6-17.8); IMMATURE GRANULOCYTES 0.5 %; IMMATURE GRANULOCYTES ABSOLUTE 0.07 10/3/uL (0.0-0.11); LYMPHOCYTES 4.9 %; LYMPHOCYTES ABSOLUTE 0.72 10/3/uL (0.67-4.30); MEAN CORPUS HGB CONC 33.8 g/dL (32.0-36.0); MEAN CORPUSCULAR HEMOGLOB 32.6 pg (26.0-34.0); MEAN CORPUSCULAR VOLUME 96.5 fL (80-100); MEAN PLATELET VOLUME 10.3 fL (9.2-13.0); MONOCYTES 7.6 %; NEUTROPHILS 86.8 %; NEUTROPHILS ABSOLUTE 12.65 10/3/uL (2.02-8.40); PLATELET COUNT 183 10/3/uL (150-400); RBC DISTRIBUTION WIDTH 15.3 % (12.0-16.0); RED CELL COUNT 3.13 10/6/uL (4.7-6.1); WHITE BLOOD CELLS 14.6 10/3/uL (4.5-10.5)
[2017-01-30 03:43] LABS: MANUAL DIFF NO %
[2017-01-30 04:01] LABS: A/G RATIO 1.2 (0.7-1.9); ALBUMIN 3.3 G/DL (3.5-5.0); ALKALINE PHOSPHATASE 38 U/L (45-117); BUN (BLOOD UREA NITROGEN) 34 MG/DL (6-23); CALCIUM, SERUM 7.6 MG/DL (8.5-10.4); CHLORIDE, SERUM 109 MMOL/L (96-112); CO2 (CARBON DIOXIDE) 24 MMOL/L (24-34); GFR AFRICAN AMERICAN 34 ML/MIN (>=60); GFR NON AFRICAN AMERICAN 29 ML/MIN (>=60); GLOBULIN 2.7 G/DL (2.5-4.1); GLUCOSE, SERUM 161 MG/DL (60-99); PHOSPHORUS, SERUM 3.2 MG/DL (2.5-4.5); POTASSIUM, SERUM 4.3 MMOL/L (3.5-5.3); SGOT(AST) 39 U/L (5-40); SGPT(ALT) 24 U/L (5-65); SODIUM, SERUM 140 MMOL/L (135-148); TOTAL BILIRUBIN 0.9 MG/DL (0-1.2)
[2017-01-30 04:39] LABS: PROCALCITONIN 2.94 ng/mL (<0.5)
[2017-01-30 05:19] LABS: BE (BASE EXCESS) -1.9 MEQ/L (0 +/- 2.5); CARBOXYHEMOGLOBIN 0.1 % (0-3); HCO3 (ACTUAL BICARBONATE) 22.2 MEQ/L (23-27); INSTRUMENT SERIAL # 11843; METHEMOGLOBIN 0.4 % (0-3); MODE 100; O2 CONTENT 13.5 VOL% (18-24); OPERATOR ID 13415; PCO2 (CO2 TENSION) 35 MMHG (35-45); PO2 (O2 TENSION) 55 MMHG (79-93); SAMPLE Arterial; pH 7.42 (7.37-7.43)
[2017-01-30 09:06] LABS: BE (BASE EXCESS) -2.6 MEQ/L (0 +/- 2.5); BIPAP 16/8 cm.H2O; CARBOXYHEMOGLOBIN 0.3 % (0-3); HCO3 (ACTUAL BICARBONATE) 21.6 MEQ/L (23-27); HEMOBLOGIN CONTENT 10.5 G/DL (14-18); INSTRUMENT SERIAL # 11843; METHEMOGLOBIN 0.5 % (0-3); OPERATOR ID 18642; PCO2 (CO2 TENSION) 35 MMHG (35-45); PO2 (O2 TENSION) 80 MMHG (79-93); SAMPLE Arterial; pH 7.41 (7.37-7.43)
[2017-01-30 11:15] LABS: ASCORBIC ACID (UR NOT ORDER) NEG (NEG); BILIRUBIN, URINE NEGATIVE (NEG); KETONE, URINE NEGATIVE (NEG); LEUKOCYTE ESTERASE(NOT OR NEG (NEG); WBC (NOT ORDERED) (RFLEX) 6 (0-5)
[2017-01-30 16:23] LABS: BUN (BLOOD UREA NITROGEN) 41 MG/DL (6-23); CALCIUM, SERUM 7.9 MG/DL (8.5-10.4); CHLORIDE, SERUM 105 MMOL/L (96-112); CO2 (CARBON DIOXIDE) 25 MMOL/L (24-34); CREATININE 2.18 MG/DL (0.70-1.30); GFR AFRICAN AMERICAN 34 ML/MIN (>=60); GFR NON AFRICAN AMERICAN 30 ML/MIN (>=60); GLUCOSE, SERUM 137 MG/DL (60-99); PHOSPHORUS, SERUM 3.2 MG/DL (2.5-4.5); POTASSIUM, SERUM 3.7 MMOL/L (3.5-5.3); SODIUM, SERUM 137 MMOL/L (135-148)
[2017-01-31 03:22] LABS: BASOPHILS 0.1 %; BASOPHILS ABSOLUTE 0.01 10/3/uL (0.0-0.16); EOSINOPHILS 1.3 %; EOSINOPHILS ABSOLUTE 0.14 10/3/uL (0.0-0.53); HEMATOCRIT 28.3 % (40.0-51.0); HEMOGLOBIN 9.5 g/dL (13.6-17.8); IMMATURE GRANULOCYTES 0.4 %; IMMATURE GRANULOCYTES ABSOLUTE 0.04 10/3/uL (0.0-0.11); LYMPHOCYTES 5.8 %; LYMPHOCYTES ABSOLUTE 0.61 10/3/uL (0.67-4.30); MEAN CORPUS HGB CONC 33.6 g/dL (32.0-36.0); MEAN CORPUSCULAR HEMOGLOB 32.3 pg (26.0-34.0); MEAN CORPUSCULAR VOLUME 96.3 fL (80-100); MEAN PLATELET VOLUME 10.5 fL (9.2-13.0); MONOCYTES 7.1 %; MONOCYTES ABSOLUTE 0.75 10/3/uL (0.21-1.20); NEUTROPHILS 85.3 %; NEUTROPHILS ABSOLUTE 8.97 10/3/uL (2.02-8.40); NUCLEATED RED BLOOD CELLS 0.2 /100WBC (0-0); PLATELET COUNT 170 10/3/uL (150-400); RED CELL COUNT 2.94 10/6/uL (4.7-6.1); WHITE BLOOD CELLS 10.5 10/3/uL (4.5-10.5)
[2017-01-31 03:29] LABS: BE (BASE EXCESS) 1.1 MEQ/L (0 +/- 2.5); HCO3 (ACTUAL BICARBONATE) 24.9 MEQ/L (23-27); INSTRUMENT SERIAL # 11843; PCO2 (CO2 TENSION) 37 MMHG (35-45); PO2 (O2 TENSION) 71 MMHG (79-93); pH 7.45 (7.37-7.43)
[2017-01-31 03:30] LABS: ALBUMIN 3.3 G/DL (3.5-5.0); BUN (BLOOD UREA NITROGEN) 38 MG/DL (6-23); CHLORIDE, SERUM 106 MMOL/L (96-112); CO2 (CARBON DIOXIDE) 25 MMOL/L (24-34); CREATININE 1.76 MG/DL (0.70-1.30); GFR AFRICAN AMERICAN 44 ML/MIN (>=60); GFR NON AFRICAN AMERICAN 38 ML/MIN (>=60); GLUCOSE, SERUM 129 MG/DL (60-99); PHOSPHORUS, SERUM 2.5 MG/DL (2.5-4.5); POTASSIUM, SERUM 4.2 MMOL/L (3.5-5.3); SODIUM, SERUM 139 MMOL/L (135-148)
[2017-01-31 03:30] LABS: BIPAP 16/8 cm.H2O; CARBOXYHEMOGLOBIN 0.3 % (0-3); HEMOBLOGIN CONTENT 10.7 G/DL (14-18); METHEMOGLOBIN 0.4 % (0-3); OPERATOR ID 16503; SAMPLE Arterial
[2017-01-31 03:31] LABS: MANUAL DIFF NO %
[2017-01-31 12:37] LABS: FREE T4 1.16 NG/DL (0.76-1.46); ULTRASENSITIVE TSH 0.577 MCIU/ML (0.358-3.740)
[2017-01-31 12:58] LABS: BE (BASE EXCESS) -0.6 MEQ/L (0 +/- 2.5); BIPAP 14/8 cm.H2O; CARBOXYHEMOGLOBIN 0.3 % (0-3); HCO3 (ACTUAL BICARBONATE) 25.1 MEQ/L (23-27); HEMOBLOGIN CONTENT 10.4 G/DL (14-18); INSTRUMENT SERIAL # 11843; METHEMOGLOBIN 0.4 % (0-3); O2 CONTENT 12.9 VOL% (18-24); OPERATOR ID 32214; PCO2 (CO2 TENSION) 46 MMHG (35-45); PO2 (O2 TENSION) 62 MMHG (79-93); SAMPLE Arterial; pH 7.36 (7.37-7.43)
[2017-01-31 13:41] LABS: PROCALCITONIN 1.82 ng/mL (<0.5)
[2017-01-31 14:31] LABS: BE (BASE EXCESS) -4.1 MEQ/L (0 +/- 2.5); CARBOXYHEMOGLOBIN 0.3 % (0-3); HCO3 (ACTUAL BICARBONATE) 21.8 MEQ/L (23-27); HEMOBLOGIN CONTENT 10.3 G/DL (14-18); INSTRUMENT SERIAL # 11843; METHEMOGLOBIN 0.4 % (0-3); MODE CMV; O2 CONTENT 13.2 VOL% (18-24); OPERATOR ID 32214; PCO2 (CO2 TENSION) 43 MMHG (35-45); PO2 (O2 TENSION) 71 MMHG (79-93); SAMPLE Arterial; TIDAL VOLUME 550 ML; pH 7.32 (7.37-7.43)
[2017-01-31 14:32] LABS: BE (BASE EXCESS) -4.2 MEQ/L (0 +/- 2.5); CARBOXYHEMOGLOBIN 0.3 % (0-3); HCO3 (ACTUAL BICARBONATE) 24.1 MEQ/L (23-27); HEMOBLOGIN CONTENT 10.7 G/DL (14-18); INSTRUMENT SERIAL # 11843; METHEMOGLOBIN 0.5 % (0-3); MODE CMV; O2 CONTENT 12.5 VOL% (18-24); OPERATOR ID 32214; PCO2 (CO2 TENSION) 61 MMHG (35-45); PO2 (O2 TENSION) 60 MMHG (79-93); SAMPLE Arterial; TIDAL VOLUME 550 ML; pH 7.22 (7.37-7.43)
[2017-02-01 03:31] LABS: BE (BASE EXCESS) -1.7 MEQ/L (0 +/- 2.5); CARBOXYHEMOGLOBIN 0.3 % (0-3); HCO3 (ACTUAL BICARBONATE) 22.9 MEQ/L (23-27); HEMOBLOGIN CONTENT 9.4 G/DL (14-18); INSTRUMENT SERIAL # 11843; METHEMOGLOBIN 0.8 % (0-3); MODE CMV; O2 CONTENT 12.5 VOL% (18-24); OPERATOR ID 17370; PCO2 (CO2 TENSION) 38 MMHG (35-45); PO2 (O2 TENSION) 78 MMHG (79-93); SAMPLE Arterial; TIDAL VOLUME 550 ML
[2017-02-01 03:49] LABS: BASOPHILS 0.1 %; BASOPHILS ABSOLUTE 0.01 10/3/uL (0.0-0.16); EOSINOPHILS 1.8 %; EOSINOPHILS ABSOLUTE 0.16 10/3/uL (0.0-0.53); HEMATOCRIT 25.6 % (40.0-51.0); HEMOGLOBIN 8.6 g/dL (13.6-17.8); IMMATURE GRANULOCYTES 0.3 %; IMMATURE GRANULOCYTES ABSOLUTE 0.03 10/3/uL (0.0-0.11); LYMPHOCYTES 6.3 %; LYMPHOCYTES ABSOLUTE 0.55 10/3/uL (0.67-4.30); MEAN CORPUS HGB CONC 33.6 g/dL (32.0-36.0); MEAN CORPUSCULAR HEMOGLOB 32.6 pg (26.0-34.0); MEAN PLATELET VOLUME 10.7 fL (9.2-13.0); MONOCYTES 7.3 %; MONOCYTES ABSOLUTE 0.64 10/3/uL (0.21-1.20); NEUTROPHILS 84.2 %; NEUTROPHILS ABSOLUTE 7.39 10/3/uL (2.02-8.40); PLATELET COUNT 201 10/3/uL (150-400); RBC DISTRIBUTION WIDTH 14.8 % (12.0-16.0); RED CELL COUNT 2.64 10/6/uL (4.7-6.1); WHITE BLOOD CELLS 8.8 10/3/uL (4.5-10.5)
[2017-02-01 03:50] LABS: MANUAL DIFF NO %
[2017-02-01 03:54] LABS: ALBUMIN 2.8 G/DL (3.5-5.0); CALCIUM, SERUM 7.9 MG/DL (8.5-10.4); CHLORIDE, SERUM 106 MMOL/L (96-112); CO2 (CARBON DIOXIDE) 25 MMOL/L (24-34); GLOBULIN 2.9 G/DL (2.5-4.1); GLUCOSE, SERUM 127 MG/DL (60-99); PHOSPHORUS, SERUM 2.5 MG/DL (2.5-4.5); POTASSIUM, SERUM 3.5 MMOL/L (3.5-5.3); SGOT(AST) 65 U/L (5-40); SGPT(ALT) 62 U/L (5-65); SODIUM, SERUM 139 MMOL/L (135-148); TOTAL PROTEIN 5.7 G/DL (6.0-8.5)
[2017-02-01 03:55] LABS: ALKALINE PHOSPHATASE 68 U/L (45-117); BUN (BLOOD UREA NITROGEN) 48 MG/DL (6-23); GFR AFRICAN AMERICAN 32 ML/MIN (>=60); GFR NON AFRICAN AMERICAN 28 ML/MIN (>=60)
[2017-02-01 04:58] LABS: PROCALCITONIN 1.62 ng/mL (<0.5)
[2017-02-02 03:25] LABS: BASOPHILS 0.1 %; BASOPHILS ABSOLUTE 0.01 10/3/uL (0.0-0.16); EOSINOPHILS 2.9 %; EOSINOPHILS ABSOLUTE 0.21 10/3/uL (0.0-0.53); HEMATOCRIT 25.7 % (40.0-51.0); HEMOGLOBIN 8.5 g/dL (13.6-17.8); IMMATURE GRANULOCYTES ABSOLUTE 0.07 10/3/uL (0.0-0.11); LYMPHOCYTES 10.2 %; LYMPHOCYTES ABSOLUTE 0.75 10/3/uL (0.67-4.30); MANUAL DIFF NO %; MEAN CORPUS HGB CONC 33.1 g/dL (32.0-36.0); MEAN CORPUSCULAR HEMOGLOB 32.4 pg (26.0-34.0); MEAN CORPUSCULAR VOLUME 98.1 fL (80-100); MEAN PLATELET VOLUME 9.5 fL (9.2-13.0); MONOCYTES 9.3 %; MONOCYTES ABSOLUTE 0.68 10/3/uL (0.21-1.20); NEUTROPHILS 76.5 %; NEUTROPHILS ABSOLUTE 5.62 10/3/uL (2.02-8.40); PLATELET COUNT 218 10/3/uL (150-400); RBC DISTRIBUTION WIDTH 15.1 % (12.0-16.0); RED CELL COUNT 2.62 10/6/uL (4.7-6.1); WHITE BLOOD CELLS 7.3 10/3/uL (4.5-10.5)
[2017-02-02 03:27] LABS: BE (BASE EXCESS) -1.5 MEQ/L (0 +/- 2.5); CARBOXYHEMOGLOBIN 0.1 % (0-3); HCO3 (ACTUAL BICARBONATE) 23.1 MEQ/L (23-27); HEMOBLOGIN CONTENT 9.2 G/DL (14-18); INSTRUMENT SERIAL # 11843; METHEMOGLOBIN 0.7 % (0-3); MODE CMV; O2 CONTENT 12.4 VOL% (18-24); OPERATOR ID 17370; PCO2 (CO2 TENSION) 38 MMHG (35-45); PO2 (O2 TENSION) 88 MMHG (79-93); SAMPLE Arterial; TIDAL VOLUME 550 ML
[2017-02-02 03:37] LABS: BUN (BLOOD UREA NITROGEN) 48 MG/DL (6-23); CALCIUM, SERUM 7.9 MG/DL (8.5-10.4); CHLORIDE, SERUM 112 MMOL/L (96-112); CO2 (CARBON DIOXIDE) 25 MMOL/L (24-34); CREATININE 2.09 MG/DL (0.70-1.30); GFR AFRICAN AMERICAN 36 ML/MIN (>=60); GFR NON AFRICAN AMERICAN 31 ML/MIN (>=60); GLUCOSE, SERUM 130 MG/DL (60-99); PHOSPHORUS, SERUM 2.4 MG/DL (2.5-4.5); POTASSIUM, SERUM 4.1 MMOL/L (3.5-5.3); SODIUM, SERUM 141 MMOL/L (135-148)
[2017-02-02 15:57] LABS: ALBUMIN 2.7 G/DL (3.5-5.0); BUN (BLOOD UREA NITROGEN) 49 MG/DL (6-23); CALCIUM, SERUM 8.3 MG/DL (8.5-10.4); CHLORIDE, SERUM 113 MMOL/L (96-112); CO2 (CARBON DIOXIDE) 26 MMOL/L (24-34); CREATININE 1.96 MG/DL (0.70-1.30); GFR AFRICAN AMERICAN 39 ML/MIN (>=60); GFR NON AFRICAN AMERICAN 34 ML/MIN (>=60); GLUCOSE, SERUM 113 MG/DL (60-99); PHOSPHORUS, SERUM 2.6 MG/DL (2.5-4.5); POTASSIUM, SERUM 4.1 MMOL/L (3.5-5.3); SODIUM, SERUM 136 MMOL/L (135-148)
[2017-02-03 03:34] LABS: BE (BASE EXCESS) -0.7 MEQ/L (0 +/- 2.5); CARBOXYHEMOGLOBIN 0.3 % (0-3); HCO3 (ACTUAL BICARBONATE) 24.2 MEQ/L (23-27); HEMOBLOGIN CONTENT 10.8 G/DL (14-18); INSTRUMENT SERIAL # 11843; METHEMOGLOBIN 0.5 % (0-3); O2 CONTENT 13.4 VOL% (18-24); OPERATOR ID 23712; PCO2 (CO2 TENSION) 41 MMHG (35-45); PO2 (O2 TENSION) 59 MMHG (79-93); SAMPLE Arterial; pH 7.39 (7.37-7.43)
[2017-02-03 03:35] LABS: MODE CMV; TIDAL VOLUME 600 ML
[2017-02-03 04:08] LABS: HEMATOCRIT 27.5 % (40.0-51.0); HEMOGLOBIN 8.9 g/dL (13.6-17.8); MANUAL DIFF YES %; MEAN CORPUS HGB CONC 32.4 g/dL (32.0-36.0); MEAN CORPUSCULAR HEMOGLOB 31.9 pg (26.0-34.0); MEAN CORPUSCULAR VOLUME 98.6 fL (80-100); MEAN PLATELET VOLUME 9.7 fL (9.2-13.0); NUCLEATED RED BLOOD CELLS 0.9 /100WBC (0-0); PLATELET COUNT 291 10/3/uL (150-400); RBC DISTRIBUTION WIDTH 15.2 % (12.0-16.0); RED CELL COUNT 2.79 10/6/uL (4.7-6.1)
[2017-02-03 04:16] LABS: BUN (BLOOD UREA NITROGEN) 52 MG/DL (6-23); CHLORIDE, SERUM 112 MMOL/L (96-112); CO2 (CARBON DIOXIDE) 26 MMOL/L (24-34); CREATININE 1.99 MG/DL (0.70-1.30); GFR AFRICAN AMERICAN 38 ML/MIN (>=60); GFR NON AFRICAN AMERICAN 33 ML/MIN (>=60); GLUCOSE, SERUM 125 MG/DL (60-99); POTASSIUM, SERUM 4.5 MMOL/L (3.5-5.3); SODIUM, SERUM 142 MMOL/L (135-148)
[2017-02-03 04:42] LABS: BAND NEUTROPHILS 1 %; BASOPHILS 1 %; EOSINOPHILS 1 %; LYMPHOCYTES 9 %; METAMYELOCYTES 5 %; MONOCYTES 2 %; MYELOCYTES 1 %; PLATELET ESTIMATE ADQ (ADEQUATE); RBC MORPHOLOGY NORM (NORMAL); SEGMENTED NEUTROPHIL (0) 80 %; TOTAL NUCLEATED CELLS 100
[2017-02-04 03:20] LABS: BE (BASE EXCESS) 0.9 MEQ/L (0 +/- 2.5); CARBOXYHEMOGLOBIN 0.3 % (0-3); HEMOBLOGIN CONTENT 9.9 G/DL (14-18); INSTRUMENT SERIAL # 11843; METHEMOGLOBIN 0.7 % (0-3); MODE CMV; O2 CONTENT 12.8 VOL% (18-24); OPERATOR ID 23712; PCO2 (CO2 TENSION) 38 MMHG (35-45); PO2 (O2 TENSION) 68 MMHG (79-93); SAMPLE Arterial; TIDAL VOLUME 600 ML; pH 7.44 (7.37-7.43)
[2017-02-04 03:38] LABS: HEMATOCRIT 27.4 % (40.0-51.0); MEAN CORPUS HGB CONC 32.8 g/dL (32.0-36.0); MEAN CORPUSCULAR HEMOGLOB 32.5 pg (26.0-34.0); MEAN CORPUSCULAR VOLUME 98.9 fL (80-100); MEAN PLATELET VOLUME 9.8 fL (9.2-13.0); PLATELET COUNT 315 10/3/uL (150-400); RBC DISTRIBUTION WIDTH 15.2 % (12.0-16.0); RED CELL COUNT 2.77 10/6/uL (4.7-6.1); WHITE BLOOD CELLS 10.5 10/3/uL (4.5-10.5)
[2017-02-04 03:40] LABS: MANUAL DIFF YES %
[2017-02-04 03:50] LABS: ALBUMIN 2.5 G/DL (3.5-5.0); CALCIUM, SERUM 8.3 MG/DL (8.5-10.4); CHLORIDE, SERUM 110 MMOL/L (96-112); CO2 (CARBON DIOXIDE) 27 MMOL/L (24-34); CREATININE 1.83 MG/DL (0.70-1.30); GFR AFRICAN AMERICAN 42 ML/MIN (>=60); GFR NON AFRICAN AMERICAN 37 ML/MIN (>=60); GLUCOSE, SERUM 113 MG/DL (60-99); POTASSIUM, SERUM 4.4 MMOL/L (3.5-5.3); SODIUM, SERUM 144 MMOL/L (135-148)
[2017-02-04 03:54] LABS: BUN (BLOOD UREA NITROGEN) 48 MG/DL (6-23); PHOSPHORUS, SERUM 4.2 MG/DL (2.5-4.5)
[2017-02-04 06:02] LABS: BAND NEUTROPHILS 2 %; EOSINOPHILS 7 %; EOSINOPHILS ABSOLUTE (CALC) 0.74 10/3/uL (0.0-0.53); LYMPHOCYTES 9 %; LYMPHOCYTES ABSOLUTE (CALC) 0.95 10/3/uL (0.67-4.30); MONOCYTES 4 %; MONOCYTES ABSOLUTE (CALC) 0.42 10/3/uL (0.21-1.20); SEGMENTED NEUTROPHIL (0) 78 %; TOTAL NUCLEATED CELLS 100
[2017-02-04 06:03] LABS: HYPOCHROMIA 1+ (3-10/OIF) (0-2/OIF); PLATELET ESTIMATE ADQ (ADEQUATE)
[2017-02-05 03:55] LABS: BE (BASE EXCESS) 2.6 MEQ/L (0 +/- 2.5); CARBOXYHEMOGLOBIN 0.3 % (0-3); HEMOBLOGIN CONTENT 10.6 G/DL (14-18); INSTRUMENT SERIAL # 11843; METHEMOGLOBIN 0.6 % (0-3); MODE CMV; O2 CONTENT 14.4 VOL% (18-24); OPERATOR ID 31061; PCO2 (CO2 TENSION) 41 MMHG (35-45); PO2 (O2 TENSION) 97 MMHG (79-93); SAMPLE Arterial; TIDAL VOLUME 600 ML; pH 7.43 (7.37-7.43)
[2017-02-05 04:00] LABS: HEMATOCRIT 28.1 % (40.0-51.0); HEMOGLOBIN 8.9 g/dL (13.6-17.8); MEAN CORPUS HGB CONC 31.7 g/dL (32.0-36.0); MEAN CORPUSCULAR HEMOGLOB 30.9 pg (26.0-34.0); MEAN CORPUSCULAR VOLUME 97.6 fL (80-100); MEAN PLATELET VOLUME 9.7 fL (9.2-13.0); NUCLEATED RED BLOOD CELLS 0.5 /100WBC (0-0); PLATELET COUNT 344 10/3/uL (150-400); RBC DISTRIBUTION WIDTH 15.2 % (12.0-16.0); RED CELL COUNT 2.88 10/6/uL (4.7-6.1); WHITE BLOOD CELLS 9.9 10/3/uL (4.5-10.5)
[2017-02-05 04:01] LABS: MANUAL DIFF YES %
[2017-02-05 04:09] LABS: BUN (BLOOD UREA NITROGEN) 50 MG/DL (6-23); CALCIUM, SERUM 8.2 MG/DL (8.5-10.4); CHLORIDE, SERUM 109 MMOL/L (96-112); CO2 (CARBON DIOXIDE) 28 MMOL/L (24-34); CREATININE 1.99 MG/DL (0.70-1.30); GFR AFRICAN AMERICAN 38 ML/MIN (>=60); GFR NON AFRICAN AMERICAN 33 ML/MIN (>=60); GLUCOSE, SERUM 126 MG/DL (60-99); PHOSPHORUS, SERUM 4.5 MG/DL (2.5-4.5); POTASSIUM, SERUM 4.2 MMOL/L (3.5-5.3); SODIUM, SERUM 145 MMOL/L (135-148)
[2017-02-05 06:32] LABS: BAND NEUTROPHILS 3 %; EOSINOPHILS 2 %; HYPOCHROMIA 1+ (3-10/OIF) (0-2/OIF); LYMPHOCYTES 4 %; METAMYELOCYTES 1 %; MONOCYTES 3 %; NEUTROPHILS ABSOLUTE (CALC) 8.91 10/3/uL (2.02-8.40); PLATELET ESTIMATE ADQ (ADEQUATE); SEGMENTED NEUTROPHIL (0) 87 %; TOTAL NUCLEATED CELLS 100
[2017-02-06 03:36] LABS: HEMATOCRIT 29.9 % (40.0-51.0); HEMOGLOBIN 9.6 g/dL (13.6-17.8); MEAN CORPUS HGB CONC 32.1 g/dL (32.0-36.0); MEAN CORPUSCULAR HEMOGLOB 31.6 pg (26.0-34.0); MEAN CORPUSCULAR VOLUME 98.4 fL (80-100); MEAN PLATELET VOLUME 10.1 fL (9.2-13.0); NUCLEATED RED BLOOD CELLS 0.3 /100WBC (0-0); PLATELET COUNT 357 10/3/uL (150-400); RBC DISTRIBUTION WIDTH 15.3 % (12.0-16.0); RED CELL COUNT 3.04 10/6/uL (4.7-6.1); WHITE BLOOD CELLS 8.8 10/3/uL (4.5-10.5)
[2017-02-06 03:39] LABS: BUN (BLOOD UREA NITROGEN) 53 MG/DL (6-23); CALCIUM, SERUM 8.1 MG/DL (8.5-10.4); CHLORIDE, SERUM 109 MMOL/L (96-112); CO2 (CARBON DIOXIDE) 30 MMOL/L (24-34); CREATININE 1.75 MG/DL (0.70-1.30); GFR AFRICAN AMERICAN 45 ML/MIN (>=60); GFR NON AFRICAN AMERICAN 39 ML/MIN (>=60); GLUCOSE, SERUM 134 MG/DL (60-99); PHOSPHORUS, SERUM 3.9 MG/DL (2.5-4.5); POTASSIUM, SERUM 4.3 MMOL/L (3.5-5.3); SODIUM, SERUM 145 MMOL/L (135-148)
[2017-02-06 03:41] LABS: MANUAL DIFF YES %
[2017-02-06 03:57] LABS: BAND NEUTROPHILS 2 %; EOSINOPHILS 3 %; EOSINOPHILS ABSOLUTE (CALC) 0.26 10/3/uL (0.0-0.53); IMMATURE GRANS ABSOLUTE (CALC) 0.18 10/3/uL (0.0-0.11); LYMPHOCYTES 5 %; LYMPHOCYTES ABSOLUTE (CALC) 0.44 10/3/uL (0.67-4.30); METAMYELOCYTES 2 %; MONOCYTES 2 %; MONOCYTES ABSOLUTE (CALC) 0.18 10/3/uL (0.21-1.20); NEUTROPHILS ABSOLUTE (CALC) 7.74 10/3/uL (2.02-8.40); PLATELET ESTIMATE ADQ (ADEQUATE); SEGMENTED NEUTROPHIL (0) 86 %; TOTAL NUCLEATED CELLS 100
[2017-02-06 03:58] LABS: POLYCHROMASIA 1+ (2-5/OIF) (0-1/OIF)
[2017-02-06 04:17] LABS: PROCALCITONIN 0.31 ng/mL (<0.5)
[2017-02-06 14:59] LABS: INTERNATIONAL NORMAL RATI 1.3 UNITS (-); PARTIAL THROMBO TIME 35.8 SEC (22.5-37.2); PROTIME (NOT ORD) 15.6 SEC (12.0-14.5)
[2017-02-07 00:09] LABS: ASCORBIC ACID (UR NOT ORDER) NEG (NEG); BILIRUBIN, URINE NEGATIVE (NEG); KETONE, URINE NEGATIVE (NEG); LEUKOCYTE ESTERASE(NOT OR NEG (NEG); WBC (NOT ORDERED) (RFLEX) 3 (0-5)
[2017-02-07 04:02] LABS: HEMATOCRIT 29.7 % (40.0-51.0); HEMOGLOBIN 9.4 g/dL (13.6-17.8); MEAN CORPUS HGB CONC 31.6 g/dL (32.0-36.0); MEAN CORPUSCULAR HEMOGLOB 31.3 pg (26.0-34.0); PLATELET COUNT 366 10/3/uL (150-400); RBC DISTRIBUTION WIDTH 15.4 % (12.0-16.0); WHITE BLOOD CELLS 8.5 10/3/uL (4.5-10.5)
[2017-02-07 04:05] LABS: MANUAL DIFF YES %
[2017-02-07 04:11] LABS: ALBUMIN 2.2 G/DL (3.5-5.0); CALCIUM, SERUM 8.1 MG/DL (8.5-10.4); CHLORIDE, SERUM 110 MMOL/L (96-112); CO2 (CARBON DIOXIDE) 29 MMOL/L (24-34); CREATININE 1.82 MG/DL (0.70-1.30); DIRECT BILIRUBIN 0.6 MG/DL (0.0-0.4); GFR AFRICAN AMERICAN 43 ML/MIN (>=60); GFR NON AFRICAN AMERICAN 37 ML/MIN (>=60); GLUCOSE, SERUM 128 MG/DL (60-99); INDIRECT BILIRUBIN(NOT ORDER) 0.3 MG/DL (0.1-0.9); PHOSPHORUS, SERUM 4.1 MG/DL (2.5-4.5); POTASSIUM, SERUM 4.2 MMOL/L (3.5-5.3); SGOT(AST) 45 U/L (5-40); SGPT(ALT) 45 U/L (5-65); SODIUM, SERUM 146 MMOL/L (135-148); TOTAL BILIRUBIN 0.9 MG/DL (0-1.2); TOTAL PROTEIN 6.5 G/DL (6.0-8.5)
[2017-02-07 04:13] LABS: ALKALINE PHOSPHATASE 84 U/L (45-117); BUN (BLOOD UREA NITROGEN) 58 MG/DL (6-23)
[2017-02-07 05:41] LABS: PROCALCITONIN 0.31 ng/mL (<0.5)
[2017-02-07 06:41] LABS: BAND NEUTROPHILS 12 %; EOSINOPHILS 6 %; EOSINOPHILS ABSOLUTE (CALC) 0.51 10/3/uL (0.0-0.53); IMMATURE GRANS ABSOLUTE (CALC) 0.43 10/3/uL (0.0-0.11); LYMPHOCYTES 9 %; LYMPHOCYTES ABSOLUTE (CALC) 0.77 10/3/uL (0.67-4.30); METAMYELOCYTES 5 %; MONOCYTES 1 %; MONOCYTES ABSOLUTE (CALC) 0.09 10/3/uL (0.21-1.20); NEUTROPHILS ABSOLUTE (CALC) 6.72 10/3/uL (2.02-8.40); PLATELET ESTIMATE ADQ (ADEQUATE); SEGMENTED NEUTROPHIL (0) 67 %; TOTAL NUCLEATED CELLS 100
[2017-02-07 06:42] LABS: RBC MORPHOLOGY NORM (NORMAL)
[2017-02-08 03:05] LABS: INSTRUMENT SERIAL # 11843; pH 7.35 (7.37-7.43)
[2017-02-08 03:06] LABS: ALLENS TEST Pos; BE (BASE EXCESS) 1.9 MEQ/L (0 +/- 2.5); CARBOXYHEMOGLOBIN 0.3 % (0-3); HCO3 (ACTUAL BICARBONATE) 28.2 MEQ/L (23-27); HEMOBLOGIN CONTENT 10.2 G/DL (14-18); METHEMOGLOBIN 0.5 % (0-3); MODE CMV; O2 CONTENT 13.9 VOL% (18-24); OPERATOR ID 32193; PCO2 (CO2 TENSION) 53 MMHG (35-45); PO2 (O2 TENSION) 102 MMHG (79-93); SAMPLE Arterial; TIDAL VOLUME 600 ML
[2017-02-08 04:00] LABS: HEMATOCRIT 30.7 % (40.0-51.0); HEMOGLOBIN 9.7 g/dL (13.6-17.8); MEAN CORPUS HGB CONC 31.6 g/dL (32.0-36.0); MEAN CORPUSCULAR HEMOGLOB 31.3 pg (26.0-34.0); MEAN PLATELET VOLUME 10.3 fL (9.2-13.0); PLATELET COUNT 396 10/3/uL (150-400); RBC DISTRIBUTION WIDTH 15.7 % (12.0-16.0); WHITE BLOOD CELLS 9.6 10/3/uL (4.5-10.5)
[2017-02-08 04:02] LABS: MANUAL DIFF YES %
[2017-02-08 04:07] LABS: PARTIAL THROMBO TIME 129.6 SEC (22.5-37.2)
[2017-02-08 04:11] LABS: ALBUMIN 2.4 G/DL (3.5-5.0); BUN (BLOOD UREA NITROGEN) 59 MG/DL (6-23); CALCIUM, SERUM 8.5 MG/DL (8.5-10.4); CHLORIDE, SERUM 108 MMOL/L (96-112); CO2 (CARBON DIOXIDE) 28 MMOL/L (24-34); CREATININE 1.64 MG/DL (0.70-1.30); GFR AFRICAN AMERICAN 48 ML/MIN (>=60); GFR NON AFRICAN AMERICAN 42 ML/MIN (>=60); GLUCOSE, SERUM 115 MG/DL (60-99); PHOSPHORUS, SERUM 4.9 MG/DL (2.5-4.5); POTASSIUM, SERUM 4.5 MMOL/L (3.5-5.3); SGOT(AST) 61 U/L (5-40); SGPT(ALT) 63 U/L (5-65); SODIUM, SERUM 142 MMOL/L (135-148); TOTAL BILIRUBIN 0.8 MG/DL (0-1.2); TOTAL PROTEIN 7.1 G/DL (6.0-8.5)
[2017-02-08 04:16] LABS: A/G RATIO 0.5 (0.7-1.9); ALKALINE PHOSPHATASE 98 U/L (45-117); GLOBULIN 4.7 G/DL (2.5-4.1)
[2017-02-08 04:30] LABS: BAND NEUTROPHILS 14 %; EOSINOPHILS 4 %; EOSINOPHILS ABSOLUTE (CALC) 0.38 10/3/uL (0.0-0.53); IMMATURE GRANS ABSOLUTE (CALC) 0.19 10/3/uL (0.0-0.11); LYMPHOCYTES 6 %; LYMPHOCYTES ABSOLUTE (CALC) 0.58 10/3/uL (0.67-4.30); METAMYELOCYTES 2 %; MONOCYTES 3 %; MONOCYTES ABSOLUTE (CALC) 0.29 10/3/uL (0.21-1.20); NEUTROPHILS ABSOLUTE (CALC) 8.16 10/3/uL (2.02-8.40); PLATELET ESTIMATE ADQ (ADEQUATE); SEGMENTED NEUTROPHIL (0) 71 %; TOTAL NUCLEATED CELLS 100
[2017-02-08 04:31] LABS: RBC MORPHOLOGY NORM (NORMAL); SCHISTOCYTES OCC (0-2/OIF)
[2017-02-08 11:06] LABS: ALBUMIN 2.3 G/DL (3.5-5.0); BUN (BLOOD UREA NITROGEN) 56 MG/DL (6-23); CALCIUM, SERUM 8.8 MG/DL (8.5-10.4); CHLORIDE, SERUM 109 MMOL/L (96-112); CO2 (CARBON DIOXIDE) 26 MMOL/L (24-34); CREATININE 1.44 MG/DL (0.70-1.30); GFR AFRICAN AMERICAN 57 ML/MIN (>=60); GFR NON AFRICAN AMERICAN 49 ML/MIN (>=60); GLUCOSE, SERUM 127 MG/DL (60-99); POTASSIUM, SERUM 4.8 MMOL/L (3.5-5.3); SODIUM, SERUM 140 MMOL/L (135-148)
[2017-02-08 12:23] LABS: PROCALCITONIN 0.27 ng/mL (<0.5)
[2017-02-09 03:18] LABS: ALLENS TEST Pos; BE (BASE EXCESS) 3.9 MEQ/L (0 +/- 2.5); CARBOXYHEMOGLOBIN 0.1 % (0-3); HCO3 (ACTUAL BICARBONATE) 28.5 MEQ/L (23-27); HEMOBLOGIN CONTENT 9.8 G/DL (14-18); INSTRUMENT SERIAL # 11843; METHEMOGLOBIN 0.6 % (0-3); MODE CMV; O2 CONTENT 12.9 VOL% (18-24); OPERATOR ID 17370; PCO2 (CO2 TENSION) 43 MMHG (35-45); PO2 (O2 TENSION) 73 MMHG (79-93); SAMPLE Arterial; TIDAL VOLUME 600 ML; pH 7.44 (7.37-7.43)
[2017-02-09 04:02] LABS: PARTIAL THROMBO TIME 75.1 SEC (22.5-37.2)
[2017-02-09 04:07] LABS: HEMATOCRIT 28.6 % (40.0-51.0); MEAN CORPUS HGB CONC 31.5 g/dL (32.0-36.0); MEAN CORPUSCULAR HEMOGLOB 30.5 pg (26.0-34.0); MEAN CORPUSCULAR VOLUME 96.9 fL (80-100); MEAN PLATELET VOLUME 10.5 fL (9.2-13.0); PLATELET COUNT 421 10/3/uL (150-400); RBC DISTRIBUTION WIDTH 15.4 % (12.0-16.0); RED CELL COUNT 2.95 10/6/uL (4.7-6.1)
[2017-02-09 04:08] LABS: MANUAL DIFF YES %
[2017-02-09 04:13] LABS: A/G RATIO 0.5 (0.7-1.9); ALBUMIN 2.1 G/DL (3.5-5.0); BUN (BLOOD UREA NITROGEN) 59 MG/DL (6-23); CALCIUM, SERUM 8.6 MG/DL (8.5-10.4); CHLORIDE, SERUM 109 MMOL/L (96-112); CO2 (CARBON DIOXIDE) 27 MMOL/L (24-34); CREATININE 1.49 MG/DL (0.70-1.30); GFR AFRICAN AMERICAN 54 ML/MIN (>=60); GFR NON AFRICAN AMERICAN 47 ML/MIN (>=60); GLOBULIN 4.6 G/DL (2.5-4.1); GLUCOSE, SERUM 126 MG/DL (60-99); POTASSIUM, SERUM 4.4 MMOL/L (3.5-5.3); SGOT(AST) 62 U/L (5-40); SGPT(ALT) 77 U/L (5-65); SODIUM, SERUM 143 MMOL/L (135-148); TOTAL BILIRUBIN 0.6 MG/DL (0-1.2); TOTAL PROTEIN 6.7 G/DL (6.0-8.5)
[2017-02-09 04:18] LABS: ALKALINE PHOSPHATASE 111 U/L (45-117); PHOSPHORUS, SERUM 2.6 MG/DL (2.5-4.5)
[2017-02-09 04:27] LABS: BAND NEUTROPHILS 6 %; EOSINOPHILS 2 %; LYMPHOCYTES 8 %; MONOCYTES 4 %; SEGMENTED NEUTROPHIL (0) 80 %; TOTAL NUCLEATED CELLS 100
[2017-02-09 04:28] LABS: PLATELET ESTIMATE SLT INC (ADEQUATE); RBC MORPHOLOGY NORM (NORMAL)
[2017-02-10 04:22] LABS: ALLENS TEST Pos; BE (BASE EXCESS) 2.7 MEQ/L (0 +/- 2.5); CARBOXYHEMOGLOBIN 0.4 % (0-3); HCO3 (ACTUAL BICARBONATE) 26.4 MEQ/L (23-27); HEMOBLOGIN CONTENT 15.2 G/DL (14-18); INSTRUMENT SERIAL # 11843; METHEMOGLOBIN 0.5 % (0-3); MODE CMV; O2 CONTENT 19.6 VOL% (18-24); OPERATOR ID 13744; PCO2 (CO2 TENSION) 38 MMHG (35-45); PO2 (O2 TENSION) 68 MMHG (79-93); SAMPLE Arterial; TIDAL VOLUME 600 ML; pH 7.47 (7.37-7.43)
[2017-02-10 04:34] LABS: HEMATOCRIT 28.9 % (40.0-51.0); HEMOGLOBIN 9.1 g/dL (13.6-17.8); MEAN CORPUS HGB CONC 31.5 g/dL (32.0-36.0); MEAN CORPUSCULAR HEMOGLOB 30.4 pg (26.0-34.0); MEAN CORPUSCULAR VOLUME 96.7 fL (80-100); MEAN PLATELET VOLUME 10.2 fL (9.2-13.0); PLATELET COUNT 459 10/3/uL (150-400); RBC DISTRIBUTION WIDTH 15.4 % (12.0-16.0); RED CELL COUNT 2.99 10/6/uL (4.7-6.1); WHITE BLOOD CELLS 10.9 10/3/uL (4.5-10.5)
[2017-02-10 04:36] LABS: A/G RATIO 0.5 (0.7-1.9); ALBUMIN 2.2 G/DL (3.5-5.0); ALKALINE PHOSPHATASE 107 U/L (45-117); BUN (BLOOD UREA NITROGEN) 56 MG/DL (6-23); CALCIUM, SERUM 8.5 MG/DL (8.5-10.4); CHLORIDE, SERUM 110 MMOL/L (96-112); CO2 (CARBON DIOXIDE) 28 MMOL/L (24-34); CREATININE 1.31 MG/DL (0.70-1.30); GFR AFRICAN AMERICAN 63 ML/MIN (>=60); GFR NON AFRICAN AMERICAN 55 ML/MIN (>=60); GLOBULIN 4.5 G/DL (2.5-4.1); GLUCOSE, SERUM 129 MG/DL (60-99); PHOSPHORUS, SERUM 2.2 MG/DL (2.5-4.5); SGOT(AST) 73 U/L (5-40); SGPT(ALT) 88 U/L (5-65); SODIUM, SERUM 146 MMOL/L (135-148); TOTAL BILIRUBIN 0.7 MG/DL (0-1.2); TOTAL PROTEIN 6.7 G/DL (6.0-8.5)
[2017-02-10 04:37] LABS: MANUAL DIFF YES %
[2017-02-10 05:59] LABS: BAND NEUTROPHILS 9 %; EOSINOPHILS 7 %; EOSINOPHILS ABSOLUTE (CALC) 0.76 10/3/uL (0.0-0.53); LYMPHOCYTES 14 %; LYMPHOCYTES ABSOLUTE (CALC) 1.53 10/3/uL (0.67-4.30); MONOCYTES 1 %; MONOCYTES ABSOLUTE (CALC) 0.11 10/3/uL (0.21-1.20); PLATELET ESTIMATE ADQ (ADEQUATE); RBC MORPHOLOGY NORM (NORMAL); SEGMENTED NEUTROPHIL (0) 69 %; TOTAL NUCLEATED CELLS 100
[2017-02-10 06:09] LABS: PROCALCITONIN 0.24 ng/mL (<0.5)
[2017-02-10 10:32] LABS: HEPATITIS B SURFACE ANTIGEN NON-REACTIVE (NON-REACT)
[2017-02-10 10:54] LABS: HEPATITIS C ANTIBODY NON-REACTIVE (NON-REACT)
[2017-02-10 10:56] LABS: HEPATITIS B CORE AB IGM NON-REACTIVE (NON-REAC)
[2017-02-10 10:59] LABS: HEP A ANTIBODY IGM NON-REACTIVE (NON-REACT)
[2017-02-10 11:50] LABS: POTASSIUM, SERUM 3.1 MMOL/L (3.5-5.3)
[2017-02-10 16:07] LABS: PROCALCITONIN 0.21 ng/mL (<0.5)
[2017-02-10 18:37] LABS: POTASSIUM, SERUM 3.4 MMOL/L (3.5-5.3)
[2017-02-10 23:18] LABS: INTERNATIONAL NORMAL RATI 1.2 UNITS (-); PROTIME (NOT ORD) 15.2 SEC (12.0-14.5)
[2017-02-11 03:59] LABS: HEMATOCRIT 29.2 % (40.0-51.0); HEMOGLOBIN 9.2 g/dL (13.6-17.8); MANUAL DIFF YES %; MEAN CORPUS HGB CONC 31.5 g/dL (32.0-36.0); MEAN CORPUSCULAR HEMOGLOB 30.3 pg (26.0-34.0); MEAN CORPUSCULAR VOLUME 96.1 fL (80-100); MEAN PLATELET VOLUME 10.4 fL (9.2-13.0); NUCLEATED RED BLOOD CELLS 0.6 /100WBC (0-0); PLATELET COUNT 529 10/3/uL (150-400); RBC DISTRIBUTION WIDTH 15.6 % (12.0-16.0); RED CELL COUNT 3.04 10/6/uL (4.7-6.1); WHITE BLOOD CELLS 12.1 10/3/uL (4.5-10.5)
[2017-02-11 04:22] LABS: BAND NEUTROPHILS 6 %; EOSINOPHILS 2 %; EOSINOPHILS ABSOLUTE (CALC) 0.24 10/3/uL (0.0-0.53); IMMATURE GRANS ABSOLUTE (CALC) 0.36 10/3/uL (0.0-0.11); LYMPHOCYTES 8 %; LYMPHOCYTES ABSOLUTE (CALC) 0.97 10/3/uL (0.67-4.30); METAMYELOCYTES 3 %; MONOCYTES 3 %; MONOCYTES ABSOLUTE (CALC) 0.36 10/3/uL (0.21-1.20); NEUTROPHILS ABSOLUTE (CALC) 10.16 10/3/uL (2.02-8.40); PLATELET ESTIMATE SLT INC (ADEQUATE); SEGMENTED NEUTROPHIL (0) 78 %; TOTAL NUCLEATED CELLS 100
[2017-02-11 04:31] LABS: A/G RATIO 0.5 (0.7-1.9); ALBUMIN 2.2 G/DL (3.5-5.0); ALKALINE PHOSPHATASE 109 U/L (45-117); CALCIUM, SERUM 8.2 MG/DL (8.5-10.4); CHLORIDE, SERUM 113 MMOL/L (96-112); CO2 (CARBON DIOXIDE) 26 MMOL/L (24-34); CREATININE 1.22 MG/DL (0.70-1.30); GFR AFRICAN AMERICAN 69 ML/MIN (>=60); GFR NON AFRICAN AMERICAN 60 ML/MIN (>=60); GLOBULIN 4.8 G/DL (2.5-4.1); GLUCOSE, SERUM 121 MG/DL (60-99); POTASSIUM, SERUM 3.8 MMOL/L (3.5-5.3); SGOT(AST) 61 U/L (5-40); SGPT(ALT) 96 U/L (5-65); SODIUM, SERUM 146 MMOL/L (135-148); TOTAL BILIRUBIN 0.5 MG/DL (0-1.2)
[2017-02-11 04:44] LABS: BUN (BLOOD UREA NITROGEN) 46 MG/DL (6-23); FOLATE 8.4 NG/ML (>5.2)
[2017-02-12 04:20] LABS: HEMATOCRIT 31.3 % (40.0-51.0); HEMOGLOBIN 9.7 g/dL (13.6-17.8); MANUAL DIFF YES %; MEAN CORPUSCULAR HEMOGLOB 29.9 pg (26.0-34.0); MEAN CORPUSCULAR VOLUME 96.6 fL (80-100); MEAN PLATELET VOLUME 10.6 fL (9.2-13.0); NUCLEATED RED BLOOD CELLS 0.6 /100WBC (0-0); PLATELET COUNT 567 10/3/uL (150-400); RBC DISTRIBUTION WIDTH 15.8 % (12.0-16.0); RED CELL COUNT 3.24 10/6/uL (4.7-6.1); WHITE BLOOD CELLS 12.2 10/3/uL (4.5-10.5)
[2017-02-12 04:26] LABS: A/G RATIO 0.4 (0.7-1.9); ALBUMIN 2.2 G/DL (3.5-5.0); ALKALINE PHOSPHATASE 118 U/L (45-117); CALCIUM, SERUM 8.9 MG/DL (8.5-10.4); CHLORIDE, SERUM 112 MMOL/L (96-112); CO2 (CARBON DIOXIDE) 24 MMOL/L (24-34); CREATININE 1.21 MG/DL (0.70-1.30); GFR AFRICAN AMERICAN 70 ML/MIN (>=60); GFR NON AFRICAN AMERICAN 60 ML/MIN (>=60); GLUCOSE, SERUM 128 MG/DL (60-99); POTASSIUM, SERUM 3.6 MMOL/L (3.5-5.3); SGOT(AST) 50 U/L (5-40); SGPT(ALT) 97 U/L (5-65); SODIUM, SERUM 145 MMOL/L (135-148); TOTAL BILIRUBIN 0.6 MG/DL (0-1.2); TOTAL PROTEIN 7.2 G/DL (6.0-8.5)
[2017-02-12 04:27] LABS: BUN (BLOOD UREA NITROGEN) 40 MG/DL (6-23)
[2017-02-12 04:32] LABS: BAND NEUTROPHILS 5 %; EOSINOPHILS 2 %; EOSINOPHILS ABSOLUTE (CALC) 0.24 10/3/uL (0.0-0.53); HYPOCHROMIA 1+ (3-10/OIF) (0-2/OIF); IMMATURE GRANS ABSOLUTE (CALC) 0.49 10/3/uL (0.0-0.11); LYMPHOCYTES 11 %; LYMPHOCYTES ABSOLUTE (CALC) 1.34 10/3/uL (0.67-4.30); METAMYELOCYTES 4 %; MONOCYTES 6 %; MONOCYTES ABSOLUTE (CALC) 0.73 10/3/uL (0.21-1.20); NEUTROPHILS ABSOLUTE (CALC) 9.39 10/3/uL (2.02-8.40); PLATELET ESTIMATE SLT INC (ADEQUATE); SEGMENTED NEUTROPHIL (0) 72 %; TOTAL NUCLEATED CELLS 100
[2017-02-13 02:24] LABS: PARTIAL THROMBO TIME 88.5 SEC (22.5-37.2)
[2017-02-13 02:25] LABS: ALBUMIN 2.2 G/DL (3.5-5.0); BUN (BLOOD UREA NITROGEN) 43 MG/DL (6-23); CALCIUM, SERUM 8.4 MG/DL (8.5-10.4); CHLORIDE, SERUM 111 MMOL/L (96-112); CO2 (CARBON DIOXIDE) 23 MMOL/L (24-34); CREATININE 1.36 MG/DL (0.70-1.30); GFR AFRICAN AMERICAN 61 ML/MIN (>=60); GFR NON AFRICAN AMERICAN 52 ML/MIN (>=60); GLUCOSE, SERUM 141 MG/DL (60-99); PHOSPHORUS, SERUM 4.4 MG/DL (2.5-4.5); POTASSIUM, SERUM 3.7 MMOL/L (3.5-5.3); SODIUM, SERUM 143 MMOL/L (135-148)
[2017-02-13 02:26] LABS: HEMOGLOBIN 9.6 g/dL (13.6-17.8); MANUAL DIFF YES %; MEAN CORPUSCULAR HEMOGLOB 30.6 pg (26.0-34.0); MEAN CORPUSCULAR VOLUME 95.5 fL (80-100); MEAN PLATELET VOLUME 10.1 fL (9.2-13.0); PLATELET COUNT 600 10/3/uL (150-400); RBC DISTRIBUTION WIDTH 15.9 % (12.0-16.0); RED CELL COUNT 3.14 10/6/uL (4.7-6.1); WHITE BLOOD CELLS 13.5 10/3/uL (4.5-10.5)
[2017-02-13 02:42] LABS: B NATRIURETIC PEPTIDE (BNP) 257.9 PG/ML (< 100.0)
[2017-02-13 02:43] LABS: BAND NEUTROPHILS 5 %; EOSINOPHILS 2 %; EOSINOPHILS ABSOLUTE (CALC) 0.27 10/3/uL (0.0-0.53); IMMATURE GRANS ABSOLUTE (CALC) 0.81 10/3/uL (0.0-0.11); LYMPHOCYTES 5 %; LYMPHOCYTES ABSOLUTE (CALC) 0.68 10/3/uL (0.67-4.30); METAMYELOCYTES 6 %; MONOCYTES 3 %; MONOCYTES ABSOLUTE (CALC) 0.41 10/3/uL (0.21-1.20); NEUTROPHILS ABSOLUTE (CALC) 11.34 10/3/uL (2.02-8.40); PLATELET ESTIMATE INC (ADEQUATE); SEGMENTED NEUTROPHIL (0) 79 %; TOTAL NUCLEATED CELLS 100
[2017-02-13 02:44] LABS: RBC MORPHOLOGY NORM (NORMAL)
[2017-02-13 03:11] LABS: PROCALCITONIN 0.27 ng/mL (<0.5)
[2017-02-13 07:48] LABS: FREE T4 1.22 NG/DL (0.76-1.46)
[2017-02-14 02:09] LABS: HEMATOCRIT 28.8 % (40.0-51.0); HEMOGLOBIN 9.2 g/dL (13.6-17.8); MANUAL DIFF YES %; MEAN CORPUS HGB CONC 31.9 g/dL (32.0-36.0); MEAN CORPUSCULAR HEMOGLOB 30.4 pg (26.0-34.0); MEAN PLATELET VOLUME 10.3 fL (9.2-13.0); PLATELET COUNT 552 10/3/uL (150-400); RED CELL COUNT 3.03 10/6/uL (4.7-6.1); WHITE BLOOD CELLS 14.2 10/3/uL (4.5-10.5)
[2017-02-14 02:16] LABS: PARTIAL THROMBO TIME 92.9 SEC (22.5-37.2)
[2017-02-14 02:22] LABS: BUN (BLOOD UREA NITROGEN) 40 MG/DL (6-23); CALCIUM, SERUM 8.6 MG/DL (8.5-10.4); CHLORIDE, SERUM 109 MMOL/L (96-112); CO2 (CARBON DIOXIDE) 22 MMOL/L (24-34); CREATININE 1.17 MG/DL (0.70-1.30); GFR AFRICAN AMERICAN 73 ML/MIN (>=60); GFR NON AFRICAN AMERICAN 63 ML/MIN (>=60); GLUCOSE, SERUM 150 MG/DL (60-99); PHOSPHORUS, SERUM 4.1 MG/DL (2.5-4.5); POTASSIUM, SERUM 3.7 MMOL/L (3.5-5.3); SODIUM, SERUM 141 MMOL/L (135-148)
[2017-02-14 03:05] LABS: BAND NEUTROPHILS 5 %; EOSINOPHILS 2 %; EOSINOPHILS ABSOLUTE (CALC) 0.28 10/3/uL (0.0-0.53); IMMATURE GRANS ABSOLUTE (CALC) 0.85 10/3/uL (0.0-0.11); LYMPHOCYTES 5 %; LYMPHOCYTES ABSOLUTE (CALC) 0.71 10/3/uL (0.67-4.30); METAMYELOCYTES 5 %; MONOCYTES 2 %; MONOCYTES ABSOLUTE (CALC) 0.28 10/3/uL (0.21-1.20); MYELOCYTES 1 %; NEUTROPHILS ABSOLUTE (CALC) 12.07 10/3/uL (2.02-8.40); SEGMENTED NEUTROPHIL (0) 80 %; TOTAL NUCLEATED CELLS 100
[2017-02-14 03:06] LABS: PLATELET ESTIMATE SLT INC (ADEQUATE)
[2017-02-14 03:07] LABS: GIANT PLATELET RARE
[2017-02-14 14:15] LABS: INTERNATIONAL NORMAL RATI 1.2 UNITS (-); PARTIAL THROMBO TIME 34.4 SEC (22.5-37.2); PROTIME (NOT ORD) 15.4 SEC (12.0-14.5)
[2017-02-15 03:53] LABS: HEMATOCRIT 28.6 % (40.0-51.0); HEMOGLOBIN 9.2 g/dL (13.6-17.8); MEAN CORPUS HGB CONC 32.2 g/dL (32.0-36.0); MEAN CORPUSCULAR HEMOGLOB 30.5 pg (26.0-34.0); MEAN CORPUSCULAR VOLUME 94.7 fL (80-100); MEAN PLATELET VOLUME 10.2 fL (9.2-13.0); PLATELET COUNT 606 10/3/uL (150-400); RBC DISTRIBUTION WIDTH 15.6 % (12.0-16.0); RED CELL COUNT 3.02 10/6/uL (4.7-6.1)
[2017-02-15 03:59] LABS: MANUAL DIFF YES %
[2017-02-15 04:01] LABS: INTERNATIONAL NORMAL RATI 1.2 UNITS (-); PARTIAL THROMBO TIME 33.8 SEC (22.5-37.2); PROTIME (NOT ORD) 15.2 SEC (12.0-14.5)
[2017-02-15 04:03] LABS: BUN (BLOOD UREA NITROGEN) 37 MG/DL (6-23); CALCIUM, SERUM 8.6 MG/DL (8.5-10.4); CHLORIDE, SERUM 108 MMOL/L (96-112); CO2 (CARBON DIOXIDE) 24 MMOL/L (24-34); CREATININE 1.05 MG/DL (0.70-1.30); GFR AFRICAN AMERICAN 83 ML/MIN (>=60); GFR NON AFRICAN AMERICAN 72 ML/MIN (>=60); GLUCOSE, SERUM 105 MG/DL (60-99); POTASSIUM, SERUM 4.6 MMOL/L (3.5-5.3); SODIUM, SERUM 141 MMOL/L (135-148)
[2017-02-15 04:38] LABS: BAND NEUTROPHILS 3 %; EOSINOPHILS 2 %; EOSINOPHILS ABSOLUTE (CALC) 0.28 10/3/uL (0.0-0.53); IMMATURE GRANS ABSOLUTE (CALC) 0.42 10/3/uL (0.0-0.11); LYMPHOCYTES 1 %; LYMPHOCYTES ABSOLUTE (CALC) 0.14 10/3/uL (0.67-4.30); METAMYELOCYTES 3 %; MONOCYTES 2 %; MONOCYTES ABSOLUTE (CALC) 0.28 10/3/uL (0.21-1.20); NEUTROPHILS ABSOLUTE (CALC) 12.88 10/3/uL (2.02-8.40); PLATELET ESTIMATE INC (ADEQUATE); RBC MORPHOLOGY NORM (NORMAL); SEGMENTED NEUTROPHIL (0) 89 %; TOTAL NUCLEATED CELLS 100
[2017-02-16 04:14] LABS: HEMATOCRIT 28.7 % (40.0-51.0); HEMOGLOBIN 9.1 g/dL (13.6-17.8); MEAN CORPUS HGB CONC 31.7 g/dL (32.0-36.0); MEAN CORPUSCULAR VOLUME 94.7 fL (80-100); MEAN PLATELET VOLUME 10.4 fL (9.2-13.0); PLATELET COUNT 564 10/3/uL (150-400); RBC DISTRIBUTION WIDTH 15.4 % (12.0-16.0); RED CELL COUNT 3.03 10/6/uL (4.7-6.1); WHITE BLOOD CELLS 12.8 10/3/uL (4.5-10.5)
[2017-02-16 04:16] LABS: MANUAL DIFF YES %
[2017-02-16 04:22] LABS: BUN (BLOOD UREA NITROGEN) 40 MG/DL (6-23); CALCIUM, SERUM 8.6 MG/DL (8.5-10.4); CHLORIDE, SERUM 110 MMOL/L (96-112); CO2 (CARBON DIOXIDE) 21 MMOL/L (24-34); CREATININE 1.18 MG/DL (0.70-1.30); GFR AFRICAN AMERICAN 72 ML/MIN (>=60); GFR NON AFRICAN AMERICAN 62 ML/MIN (>=60); GLUCOSE, SERUM 129 MG/DL (60-99); POTASSIUM, SERUM 3.8 MMOL/L (3.5-5.3); SODIUM, SERUM 140 MMOL/L (135-148)
[2017-02-16 04:32] LABS: BAND NEUTROPHILS 1 %; EOSINOPHILS 3 %; EOSINOPHILS ABSOLUTE (CALC) 0.38 10/3/uL (0.0-0.53); IMMATURE GRANS ABSOLUTE (CALC) 0.51 10/3/uL (0.0-0.11); LYMPHOCYTES 8 %; LYMPHOCYTES ABSOLUTE (CALC) 1.02 10/3/uL (0.67-4.30); METAMYELOCYTES 4 %; MONOCYTES 6 %; MONOCYTES ABSOLUTE (CALC) 0.77 10/3/uL (0.21-1.20); NEUTROPHILS ABSOLUTE (CALC) 10.11 10/3/uL (2.02-8.40); PLATELET ESTIMATE SLT INC (ADEQUATE); RBC MORPHOLOGY NORM (NORMAL); SEGMENTED NEUTROPHIL (0) 78 %; TOTAL NUCLEATED CELLS 100; TOXIC GRANULATION 1+
== END 2017-02-16 08:38 | disposition left against medical advice (07) | DRG 3 ==
LOC: SDC/OF 05:27 → CVICU 12:02
PROVIDERS: Internal Medicine Cardiovascular Disease; Internal Medicine Critical Care Medicine; Internal Medicine Nephrology; Internal Medicine Pulmonary Disease; Thoracic Surgery (Cardiothoracic Vascular Surgery)
DX: I25.110 Atherosclerotic heart disease of native coronary artery with unstable angina pectoris (principal); J95.821 Acute postprocedural respiratory failure; J15.1 Pneumonia due to Pseudomonas; G93.49 Other encephalopathy; A41.9 Sepsis, unspecified organism; N18.4 Chronic kidney disease, stage 4 (severe); N17.9 Acute kidney failure, unspecified; I48.1 Persistent atrial fibrillation; J98.11 Atelectasis; E78.5 Hyperlipidemia, unspecified; I12.9 Hypertensive chronic kidney disease with stage 1 through stage 4 chronic kidney disease, or unspecified chronic kidney disease; G47.33 Obstructive sleep apnea (adult) (pediatric); Z86.73 Personal history of transient ischemic attack (TIA), and cerebral infarction without residual deficits; Z98.890 Other specified postprocedural states; Z96.643 Presence of artificial hip joint, bilateral; Z87.891 Personal history of nicotine dependence; Z88.5 Allergy status to narcotic agent; Z79.899 Other long term (current) drug therapy; Z79.82 Long term (current) use of aspirin; Z82.49 Family history of ischemic heart disease and other diseases of the circulatory system; Z79.84 Long term (current) use of oral hypoglycemic drugs
CPT/HCPCS: 31720; 36415; 36569; 36600; 70450; 70551; 71010; 71020; 74000; 76775; 80048; 80053; 80069; 80074; 80076; 80202; 81001; 82140; 82330; 82533; 82607; 82746; 82803; 82805; 82947; 82962; 83036; 83540; 83550; 83605; 83735; 83880; 84100; 84132; 84145; 84295; 84439; 84443; 85014; 85018; 85025; 85347; 85610; 85730; 86850; 86900; 86901; 86920; 87040; 87070; 87077; 87186; 87205; 87493; 87493-59; 87641; 89055; 93005; 94002; 94003; 94640; 94660; 94770; 95816; A9270-GY; C1713; C1725; C1751; C1757; C1769; C1894; J0360; J0690; J0692; J1120; J1205; J1644; J1940; J2150; J2250; J2370; J2405; J2440; J2543; J2720; J3010; J3370; J3475; J3480; P9035; P9045; P9047